=== PATIENT | female | born 1975 | race Caucasian/White ===

== ENCOUNTER 2019-12-10 14:32 | Outpatient (CLI) | payer OTHER, SELFPAY ==
[2019-12-15 19:12] LABS: Vitamin D 25 Hydroxy 40 ng/mL (30-100)
== END 2019-12-10 14:33 | disposition home or self-care (01) ==
LOC: CHSLAB 14:39
PROVIDERS: PCP Internal Medicine
DX: E55.9 Vitamin D deficiency, unspecified (principal)
CPT/HCPCS: 36415; 82306

== ENCOUNTER 2020-05-17 11:45 | Outpatient (CLI) | payer OTHER, SELFPAY ==
[2020-05-17 12:00] LABS: Basophils Absolute Auto 0.07 K/mm3 (0.00-0.10); Basophils Percent Auto 0.5 % (0.0-1.0); Eosinophils Absolute Auto 0.32 K/mm3 (0.02-0.50); Eosinophils Percent Auto 2.4 % (1.0-6.0); Immature Granulocyte Absolute 0.04 K/mm3 (0.00-0.00); Immature Granulocyte Percent A 0.3 % (0.0-0.0); Lymphocytes Absolute Auto 3.77 K/mm3 (1.10-4.50); Lymphocytes Percent Auto 28.7 % (18.0-42.0); Mean Corpuscular HGB Conc 34.1 g/dL (32.0-36.0); Mean Corpuscular Hemoglobin 30.6 pg (27.0-31.0); Mean Corpuscular Volume 89.5 fL (78.0-102.0); Mean Platelet Volume 9.3 fl (9.2-11.8); Monocytes Percent Auto 8.4 % (2.0-11.0); Neutrophils Absolute Auto 7.8 K/mm3 (1.7-7.2); Neutrophils Percent Auto 59.7 % (50.0-70.0); Platelet Count Result 324 K/mm3 (150-420); Red Blood Count 4.58 M/mm3 (4.20-5.40); Red Cell Distribution Width 11.9 % (11.6-14.4); White Blood Count 13.1 K/mm3 (4.8-10.8)
[2020-05-17 12:16] LABS: Appearance Urine Cloudy (Clear); Bilirubin Urine Negative (Negative); Color Urine Yellow (Yellow); Glucose Urine UA Negative (Negative); Ketones Urine Negative (Negative); Leukocyte Esterase Ur 1+ (Negative); Nitrate Urine Negative (Negative); Protein Urine Negative (Negative); Urobilinogen Urine 0.2 mg/dL (0.2-1.0)
[2020-05-17 12:26] LABS: Add Urine Microscopic? YES; Bacteria Urine 2+ /hpf; Blood Urine Trace-Intact (Negative); RBC Urine 0-2 /hpf (0-2); Squamous Epithelial Cell Urine Many /hpf (Few)
[2020-05-17 13:03] LABS: Alanine Aminotransferase 24 U/L (14-59); Albumin Level 3.7 g/dL (3.4-5.0); Alkaline Phosphatase 102 U/L (46-116); Anion Gap 12 mmol/L (8-16); Aspartate Amino Transferase 13 U/L (15-37); Bilirubin,Total 0.4 mg/dL (0.00-1.00); Blood Urea Nitrogen 15 mg/dL (7-18); Calcium 9.2 mg/dL (8.5-10.1); Carbon Dioxide 26 mmol/L (21-32); Chloride 101 mmol/L (98-108); Cholesterol 261 mg/dL (0-200); Estimated Glomerular Filt Rate > 60; Glucose 73 mg/dL (70-99); HDL Direct 47 mg/dL (40-60); LDL Cholesterol Calculated 186 mg/dL (<130); Osmolality Calculated 287 mOsm/kg (285-295); Potassium 4.4 mmol/L (3.5-5.1); Sodium 139 mmol/L (136-145); Total Protein 7.8 g/dL (6.4-8.2); Triglycerides 139 mg/dL (0-150)
== END 2020-05-17 11:46 | disposition home or self-care (01) ==
PROVIDERS: PCP Internal Medicine; Visit Provider Internal Medicine
DX: Z00.00 Encounter for general adult medical examination without abnormal findings (principal); I10 Essential (primary) hypertension; N39.0 Urinary tract infection, site not specified
CPT/HCPCS: 36415; 80053; 80061; 81001; 85025; 87086

== ENCOUNTER 2020-06-12 08:14 | Outpatient (CLI) | payer OTHER, SELFPAY ==
--- NOTE | ~2020-06-12 | MM_ITS ---
EXAMINATION: MM screening mio BI w alexa HISTORY: Screening mammogram TECHNIQUE: Craniocaudal and mediolateral oblique 3-D tomosynthesis images were obtained and synthetic 2-D images were generated. CAD analysis was submitted and interpreted. COMPARISON: 12/06/2018, 07/15/2017, 05/06/2016 bilateral digital screening mammogram examinations BREAST PARENCHYMAL COMPOSITION: There are scattered areas of fibroglandular density. FINDINGS: There is no evidence of suspicious mass, calcification, or architectural distortion to sugg est malignancy in either breast. There has been no suspicious interval change. IMPRESSION: 1. No mammographic evidence of malignancy. 2. Recommend routine screening mammography in one year. BI-RADS Category 1: Negative Reviewed, dictated and finalized at location A. 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
== END 2020-06-12 08:15 | disposition home or self-care (01) ==
LOC: CHSIMG 08:14
PROVIDERS: PCP Internal Medicine; Visit Provider Obstetrics & Gynecology
DX: Z12.31 Encounter for screening mammogram for malignant neoplasm of breast (principal)
CPT/HCPCS: 77063; 77067

== ENCOUNTER 2020-08-16 16:46 | Outpatient (CLI) | payer OTHER, SELFPAY ==
[2020-08-22 13:01] LABS: Vitamin D 25 Hydroxy 41 ng/mL (30-100)
== END 2020-08-16 16:47 | disposition home or self-care (01) ==
LOC: CHSLAB 16:48
PROVIDERS: PCP Internal Medicine; Visit Provider Internal Medicine Endocrinology, Diabetes & Metabolism
DX: E55.9 Vitamin D deficiency, unspecified (principal)
CPT/HCPCS: 36415; 82306

== ENCOUNTER 2020-10-24 15:40 | Outpatient (CLI) | payer OTHER, SELFPAY ==
[2020-10-24 17:06] LABS: Anion Gap 8 mmol/L (8-16); Blood Urea Nitrogen 14 mg/dL (7-18); Carbon Dioxide 27 mmol/L (21-32); Chloride 100 mmol/L (98-108); Estimated Glomerular Filt Rate 56; Glucose 82 mg/dL (70-99); Osmolality Calculated 279 mOsm/kg (285-295); Potassium 4.2 mmol/L (3.5-5.1); Sodium 135 mmol/L (136-145)
[2020-10-24 17:07] LABS: Thyroid Stimulating Hormone Reflex 1.47 u/IU/mL (0.36-3.74)
[2020-10-28 11:30] LABS: Vitamin D 25 Hydroxy 32 ng/mL (30-100)
== END 2020-10-24 15:41 | disposition home or self-care (01) ==
PROVIDERS: PCP Internal Medicine; Visit Provider Internal Medicine Endocrinology, Diabetes & Metabolism
DX: E55.9 Vitamin D deficiency, unspecified (principal); E06.3 Autoimmune thyroiditis
CPT/HCPCS: 36415; 80048; 82306; 84443

== ENCOUNTER 2020-12-25 09:19 | Outpatient (CLI) | payer OTHER, SELFPAY ==
--- NOTE | ~2020-12-25 | US_ITS ---
EXAMINATION: US thyroid DATE: 12/25/2020 11:43 INDICATION: Dysphagia TECHNIQUE: Multiple ultrasound images of the thyroid were obtained. COMPARISON: 12/10/2018 FINDINGS: The right thyroid lobe measures 3.6 x 0.9 x 1.2 cm. The left thyroid lobe measures 3.7 x 1.3 x 1.3 c m. The thyroid isthmus measures 3 mm in thickness. No discrete nodules identified. Again seen is diff use heterogeneous decreased echogenicity with coarsened echotexture and increased vascular flow throu ghout the thyroid. IMPRESSION: 1. Heterogeneous hypervascular thyroid consistent with chronic lymphocytic (Spencer) thyroiditis. Reviewed, dictated and finalized at location A. IMPRESSION: 1. Heterogeneous hypervascular thyroid consistent with chronic lymphocytic (Has himoto) thyroiditis.
== END 2020-12-25 09:20 | disposition home or self-care (01) ==
LOC: CHSIMG 09:21
PROVIDERS: PCP Internal Medicine; Visit Provider Internal Medicine Endocrinology, Diabetes & Metabolism
DX: R13.10 Dysphagia, unspecified (principal)
CPT/HCPCS: 76536

== ENCOUNTER 2021-03-07 12:53 | Outpatient (CLI) | payer OTHER, SELFPAY ==
[2021-03-07 16:00] LABS: SARS-CoV-2 RNA PCR Negative (Negative)
== END 2021-03-07 12:54 | disposition home or self-care (01) ==
LOC: CHSLAB 12:57
PROVIDERS: PCP Family Medicine; Visit Provider Nurse Practitioner
DX: R50.9 Fever, unspecified (principal); Z20.822 Contact with and (suspected) exposure to COVID-19
CPT/HCPCS: C9803; U0003; U0005

== ENCOUNTER 2021-07-17 09:09 | Outpatient (CLI) | payer OTHER, SELFPAY ==
[2021-07-17 09:54] LABS: Hemoglobin A1C 6.4 % (<5.7)
[2021-07-17 10:20] LABS: Alanine Aminotransferase 25 U/L (14-59); Albumin Level 3.4 g/dL (3.4-5.0); Alkaline Phosphatase 97 U/L (46-116); Anion Gap 12 mmol/L (8-16); Aspartate Amino Transferase 19 U/L (15-37); Bilirubin,Total 0.4 mg/dL (0.00-1.00); Blood Urea Nitrogen 13 mg/dL (7-18); Carbon Dioxide 27 mmol/L (21-32); Chloride 100 mmol/L (98-108); Cholesterol 238 mg/dL (0-200); Estimated Glomerular Filt Rate > 60; Glucose 109 mg/dL (70-99); HDL Direct 42 mg/dL (40-60); Osmolality Calculated 289 mOsm/kg (285-295); Potassium 3.6 mmol/L (3.5-5.1); Sodium 139 mmol/L (136-145); Total Protein 7.5 g/dL (6.4-8.2)
[2021-07-17 10:45] LABS: LDL Cholesterol Calculated 169 mg/dL (<130); Triglycerides 135 mg/dL (0-150)
[2021-07-19 13:36] LABS: Vitamin D 25 Hydroxy 47 ng/mL (30-100)
== END 2021-07-17 09:10 | disposition home or self-care (01) ==
LOC: CHSLAB 09:11
PROVIDERS: PCP Family Medicine; Visit Provider Internal Medicine Endocrinology, Diabetes & Metabolism
DX: Z13.1 Encounter for screening for diabetes mellitus (principal); I10 Essential (primary) hypertension; E78.2 Mixed hyperlipidemia; E55.9 Vitamin D deficiency, unspecified; E03.9 Hypothyroidism, unspecified
CPT/HCPCS: 36415; 80053; 80061; 82306; 83036; 84443

== ENCOUNTER 2021-09-26 07:14 | Outpatient (CLI) | payer OTHER, SELFPAY ==
--- NOTE | ~2021-09-26 | MM_ITS ---
EXAMINATION: MM screening mio BI w alexa HISTORY: Screening TECHNIQUE: Craniocaudal and mediolateral oblique 3-D tomosynthesis images were obtained and synthetic 2-D images were generated. CAD analysis was submitted and interpreted. COMPARISON: Comparison to multiple prior studies sequentially, with oldest reviewed study dated 02/13. BREAST PARENCHYMAL COMPOSITION: There are scattered areas of fibroglandular density. FINDINGS: There is no evidence of suspicious mass, calcification, or architectural distortion to sugg est malignancy in either breast. There has been no suspicious interval change. IMPRESSION: 1. No mammographic evidence of malignancy. 2. Recommend routine screening mammography in one year. BI-RADS Category 1: Negative Reviewed, dictated and finalized at location A. 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
== END 2021-09-26 07:15 | disposition home or self-care (01) ==
LOC: CHSIMG 07:15
PROVIDERS: PCP Family Medicine; Visit Provider Obstetrics & Gynecology
DX: Z12.31 Encounter for screening mammogram for malignant neoplasm of breast (principal)
CPT/HCPCS: 77063; 77067

== ENCOUNTER 2021-11-13 09:08 | Outpatient (CLI) | payer OTHER, SELFPAY ==
[2021-11-13 10:00] LABS: SARS-CoV-2 Ag Negative (Negative)
== END 2021-11-13 09:09 | disposition home or self-care (01) ==
LOC: CHSLAB 09:09
PROVIDERS: PCP Family Medicine; Visit Provider Family Medicine
DX: J06.9 Acute upper respiratory infection, unspecified (principal); Z20.822 Contact with and (suspected) exposure to COVID-19
CPT/HCPCS: 87426; C9803

== ENCOUNTER 2021-12-05 10:25 | Outpatient (CLI) | payer OTHER, SELFPAY ==
[2021-12-06 18:21] LABS: Cholesterol 231 mg/dL (0-200); HDL Direct 42 mg/dL (40-60); LDL Cholesterol Calculated 155 mg/dL (<130); Triglycerides 168 mg/dL (0-150)
== END 2021-12-05 10:26 | disposition home or self-care (01) ==
LOC: CHSLAB 10:29
PROVIDERS: PCP Family Medicine; Visit Provider Family Medicine
DX: R73.03 Prediabetes (principal); E78.2 Mixed hyperlipidemia
CPT/HCPCS: 36415; 80061; 83036

== ENCOUNTER 2022-07-04 10:02 | Outpatient (CLI) | payer OTHER, SELFPAY ==
[2022-07-04 10:48] LABS: Hemoglobin A1C 5.7 % (<5.7)
[2022-07-04 11:20] LABS: Alanine Aminotransferase 25 U/L (14-59); Albumin Level 3.6 g/dL (3.4-5.0); Alkaline Phosphatase 100 U/L (46-116); Anion Gap 10 mmol/L (8-16); Aspartate Amino Transferase 17 U/L (15-37); Bilirubin,Total 0.4 mg/dL (0.00-1.00); Blood Urea Nitrogen 16 mg/dL (7-18); Calcium 9.2 mg/dL (8.5-10.1); Carbon Dioxide 30 mmol/L (21-32); Chloride 99 mmol/L (98-108); Cholesterol 242 mg/dL (0-200); Estimated Glomerular Filt Rate > 60; Glucose 93 mg/dL (70-99); HDL Direct 43 mg/dL (40-60); LDL Cholesterol Calculated 169 mg/dL (<130); Osmolality Calculated 289 mOsm/kg (285-295); Potassium 3.8 mmol/L (3.5-5.1); Sodium 139 mmol/L (136-145); Total Protein 7.8 g/dL (6.4-8.2); Triglycerides 151 mg/dL (0-150)
[2022-07-08 21:29] LABS: Vitamin D 25 Hydroxy 57 ng/mL (30-100)
== END 2022-07-04 10:03 | disposition home or self-care (01) ==
LOC: CHSLAB 10:04
PROVIDERS: PCP Family Medicine; Visit Provider Internal Medicine Endocrinology, Diabetes & Metabolism
DX: R73.03 Prediabetes (principal); E78.2 Mixed hyperlipidemia; E03.9 Hypothyroidism, unspecified; E55.9 Vitamin D deficiency, unspecified
CPT/HCPCS: 36415; 80053; 80061; 82306; 83036; 84443

== ENCOUNTER 2022-08-02 11:13 | Emergency (ER) | payer OTHER, SELFPAY ==
--- NOTE | 2022-08-02 11:17 | ED.URI ---
HPI - URI/Sore Throat General Chief Complaint: Upper Respiratory Infection Stated Complaint: COLD/CHEST CONGESTION Time Seen by Provider: 08/02/22 11:17 Source: patient and RN notes reviewed History of Present Illness HPI Narrative: Patient is a 46-year-old female who presents to Urgent Care with her spouse with complaints of a head cold, chest congestion and cough. Patient states it started 4 days ago and she has been taking Coricidin once per day. Patient denies any other ivsx-cfg-spsuvmy medications. Denies any other upper respiratory complaints. Denies any recent exposure to illness. States her main issue is the coughing at night and in the morning when she wakes up. Denies any fever, nausea, vomiting, sore throat. No other acute complaints. No acute distress noted. Patient aware of the plan of care. Some parts of this dictation were generated by voice recognition software and may contain typographical and/or grammatical inaccuracies. Related Data Home Medications Medication Instructions Recorded Confirmed atorvastatin 10 mg tablet mg 08/02/22 chlorthalidone 25 mg tablet mg 08/02/22 ergocalciferol (vitamin D2) 1,250 08/02/22 mcg (50,000 unit) capsule metformin 500 mg tablet mg 08/02/22 metoprolol succinate 50 mg mg PO 08/02/22 tablet,extended release 24 hr Allergies Allergy/AdvReac Type Severity Reaction Status Date / Time Sulfa (Sulfonamide Allergy Rash Verified 08/02/22 11:28 Antibiotics) Review of Systems Review of Systems: CONSTITUTIONAL: Denies fever, chills, or sweats. EYES: Denies visual changes, redness, or discharge. ENT: Reports rhinorrhea, congestion postnasal CARDIOVASCULAR: Denies chest pain, palpitations, or edema. RESPIRATORY: Reports a productive cough without wheezing GASTROINTESTINAL: Denies abdominal pain, nausea, vomiting, or diarrhea. GENITOURINARY: Denies dysuria or hematuria. SKIN: Denies rash or itching. MUSCULOSKELETAL: Denies back pain, joint pain, or myalgia. NEUROLOGIC: Denies headache, numbness, or weakness. All other systems reviewed are negative, except as documented in HPI. PMFSH Comments At the time of my signature, I reviewed and agree with the nursing past medical, surgical, social, and family history. There is no relevant family history pertinent to the patient complaint. Exam Narrative: GENERAL: This is a well-nourished, well-developed patient, in no apparent distress. HEAD: normocephalic, atraumatic. EYES: PERRL. Sclera clear/white. Vision is grossly intact. EARS: External ears normal, auditory canals clear and without drainage, TMs normal without perforation. Hearing grossly intact. NOSE: External nose normal with no obvious nasal discharge, nares without redness, clear rhinorrhea. THROAT: Mucous membranes moist, moderate postnasal drainage NECK: Neck supple, non-tender without lymphadenopathy CARDIOVASCULAR: Regular rate and rhythm RESPIRATORY: Clear to auscultation. Breath sounds equal bilaterally. No wheezes, rales, or rhonchi. SKIN: warm, intact with no suspicious lesions or rash, good texture and turgor. NEURO: awake, alert, and oriented to person, place and time. There were no obvious focal neurologic abnormalities. EXTREMITIES: No clubbing, cyanosis, or edema. Course Course Level of Care: Express Care Visit Vital Signs Vital signs: Vital Signs Temperature 97.7 F 08/02/22 11:29 Pulse Rate 84 08/02/22 11:29 Respiratory Rate 16 08/02/22 11:29 Blood Pressure 158/95 H 08/02/22 11:29 Pulse Oximetry 98 08/02/22 11:29 Temperature 97.7 F 08/02/22 11:29 Pulse Rate 84 08/02/22 11:29 Respiratory Rate 16 08/02/22 11:29 Blood Pressure 158/95 H 08/02/22 11:29 Pulse Oximetry 98 08/02/22 11:29 Reviewed- Patient is informed that they may have pre-hypertension or hypertension based on a blood pressure reading in the department. I recommend the patient call the primary care provider listed on their discharge instru
[2022-08-02 11:29] VITALS: BP 158/95; PULSE 84; RESP 16; TEMP 36.5; O2SAT 98
== END 2022-08-02 11:51 | disposition home or self-care (01) ==
PROVIDERS: Emergency Provider Nurse Practitioner Family; PCP Family Medicine
DX: J06.9 Acute upper respiratory infection, unspecified (principal); E78.00 Pure hypercholesterolemia, unspecified; I10 Essential (primary) hypertension; E03.9 Hypothyroidism, unspecified; R73.03 Prediabetes
CPT/HCPCS: 99213; G0463

== ENCOUNTER 2023-01-05 07:57 | Outpatient (CLI) | payer OTHER, SELFPAY ==
--- NOTE | ~2023-01-05 | MM_ITS ---
EXAMINATION: MM screening mio BI w alexa HISTORY: Screening mammogram TECHNIQUE: Craniocaudal and mediolateral oblique 3-D tomosynthesis images were obtained and synthetic 2-D images were generated. CAD analysis was submitted and interpreted. COMPARISON: 09/26/2021, 06/08/2020, 12/06/2018 bilateral screening mammogram examinations BREAST PARENCHYMAL COMPOSITION: There are scattered areas of fibroglandular density. FINDINGS: There is no evidence of suspicious mass, calcification, or architectural distortion to sugg est malignancy in either breast. There has been no suspicious interval change. IMPRESSION: 1. No mammographic evidence of malignancy. 2. Recommend routine screening mammography in one year. BI-RADS Category 1: Negative Reviewed, dictated and finalized at location A.
== END 2023-01-05 07:58 | disposition home or self-care (01) ==
LOC: CHSIMG 07:59
PROVIDERS: PCP Family Medicine; Visit Provider Obstetrics & Gynecology
DX: Z12.31 Encounter for screening mammogram for malignant neoplasm of breast (principal)
CPT/HCPCS: 77063; 77067

== ENCOUNTER 2023-04-04 10:31 | Outpatient (CLI) | payer OTHER, SELFPAY ==
[2023-04-04 11:41] LABS: Alanine Aminotransferase 24 U/L (14-59); Albumin Level 3.5 g/dL (3.4-5.0); Alkaline Phosphatase 111 U/L (46-116); Anion Gap 9 mmol/L (8-16); Aspartate Amino Transferase 19 U/L (15-37); Bilirubin,Total 0.5 mg/dL (0.00-1.00); Blood Urea Nitrogen 14 mg/dL (7-18); Calcium 9.2 mg/dL (8.5-10.1); Carbon Dioxide 30 mmol/L (21-32); Chloride 100 mmol/L (98-108); Estimated Glomerular Filt Rate > 60; Glucose 106 mg/dL (70-99); Osmolality Calculated 288 mOsm/kg (285-295); Potassium 3.8 mmol/L (3.5-5.1); Sodium 139 mmol/L (136-145); Total Protein 7.5 g/dL (6.4-8.2)
[2023-04-04 11:54] LABS: Thyroid Stimulating Hormone Reflex 3.03 u/IU/mL (0.36-3.74)
[2023-04-09 12:33] LABS: Vitamin D 25 Hydroxy 56 ng/mL (30-100)
== END 2023-04-04 10:32 | disposition home or self-care (01) ==
LOC: CHSLAB 10:34
PROVIDERS: PCP Nurse Practitioner; Visit Provider Internal Medicine Endocrinology, Diabetes & Metabolism
DX: R73.01 Impaired fasting glucose (principal); E55.9 Vitamin D deficiency, unspecified
CPT/HCPCS: 36415; 80053; 82306; 84443

== ENCOUNTER 2023-05-29 09:04 | Outpatient (CLI) | payer OTHER, SELFPAY ==
[2023-05-29 09:59] LABS: Hemoglobin A1C 7.1 % (<5.7)
[2023-05-29 10:14] LABS: Cholesterol 198 mg/dL (0-200); HDL Direct 43 mg/dL (40-60); LDL Cholesterol Calculated 125 mg/dL (<130); Triglycerides 152 mg/dL (0-150)
== END 2023-05-29 09:05 | disposition home or self-care (01) ==
PROVIDERS: PCP Nurse Practitioner; Visit Provider Internal Medicine Endocrinology, Diabetes & Metabolism
DX: R73.01 Impaired fasting glucose (principal)
CPT/HCPCS: 36415; 80061; 83036

== ENCOUNTER 2023-10-02 00:36 | Day surgery (SDC) | payer OTHER, SELFPAY ==
[2023-09-23 10:48] VITALS: BMI 34.0
--- NOTE | 2023-09-30 08:44 | SUR.PREOP ---
Patient called regarding upcoming procedure. Reviewed preop instructions, appointment times, and procedure prep.
[2023-10-02 06:20] VITALS: BP 155/90; PULSE 95; RESP 18; TEMP 36.2; O2SAT 100; BMI 34.7
[2023-10-02] MEDS: LACTATED RINGERS 1,000 ML 150 ML IV CONT (06:46)
[2023-10-02 06:48] LABS: Glucose Point of Care 127 mg/dl (65-105)
--- NOTE | 2023-10-02 07:27 | WPDANESEPPF ---
Anes - Initial Pre Proc Eval Procedure: Operation Date: 10/02/23 07:30 Proposed Procedures p Screening Colonoscopy - Brant Huang MD Date/Time: 10/02/23 07:27 Surgeon: Brant Huang MD Pre Op Diagnosis: neoplasm screening Patient Data Age: 48 Gender: F Height: 1.6 m Weight: 88.9 kg Last Vital Signs Temp 97.2 F L 10/02/23 06:20 Pulse 95 10/02/23 06:20 Resp 18 10/02/23 06:20 BP 155/90 H 10/02/23 06:20 Pulse Ox 100 10/02/23 06:20 O2 Del Method Room Air 10/02/23 06:20 Allergies Allergy/AdvReac Type Severity Reaction Status Date / Time Sulfa (Sulfonamide Allergy Rash Verified 10/02/23 06:31 Antibiotics) Home Medications Medication Instructions Recorded Confirmed Type chlorthalidone 25 mg tablet 25 mg PO DAILY 08/02/22 10/02/23 History ergocalciferol (vitamin D2) 1,250 1,250 mcg PO WEEKLY 08/02/22 10/02/23 History mcg (50,000 unit) capsule levothyroxine 100 mcg tablet 100 mcg PO DAILY 08/02/22 10/02/23 History (Synthroid) metformin 500 mg tablet 500 mg PO BID 08/02/22 10/02/23 History metoprolol succinate 50 mg 50 mg PO HS 08/02/22 10/02/23 History tablet,extended release 24 hr norethindrone 1 mg-ethinyl 1 tablet PO DAILY 08/02/22 10/02/23 History estradiol 10 mcg (24)-iron 10 mcg(2) tablet (Lo Loestrin Fe) atorvastatin 10 mg tablet 10 mg PO DAILY #90 tabs 07/08/23 10/02/23 Rx Laboratory Tests 10/02/23 06:39 POC Capillary Glucose 127 H mg/dl (65-105) Patient hx anesthesia problems: none Family hx anesthesia problems: none Results Review: All pre-operative results and documents have been reviewed as part of the pre-operative evaluation. [facility] Past Medical History Medical History Diabetes HLD (hyperlipidemia) HTN (hypertension) Hypothyroidism Surgical History Surgical History History of delivery x2 Family History Family History Father Diabetes mellitus Hypertension Heart disease Mother Hypertension Sibling Asthma Hypertension Social History Social History (Updated 09/28/23 @ 14:24 by Fartun Siu) Social History: Spouse Smoking status: Never smoker Second hand tobacco smoke exposure: No Alcohol intake: current Alcohol use details: rare Substance use: never Substance use type: does not use Do You Feel Safe in your Home?: Yes Lack of Transportation: No Lack of Food: Never True Current Housing: I Have Housing Concerned About Future Housing: No Difficulty Paying Gas/Electric Bills: No Difficulty Paying for Meds: No Currently Unemployed: No Education: Don't Know Difficulty w/ Childcare or Family Care: No Living arrangements: alone Occupation/Education: occupation Gender identity (if verbalized by the patient): Female Sexual Orientation (if Verbalized by the Patient): Straight or Heterosexual Spiritual care concerns: No Anes - Eval Final PreProcedure Day of Procedure 10/02/23 07:27 Patient weight: obese Heart: regular rate and rhythm Lungs: clear to auscultation Airway: Mallampati scale class II Neurological: alert and oriented Last oral intake: >/= 8 hours ASA classification: III Emergent: no Anesthetic plan: proceed Anesthesia type and monitoring: general GIVS and standard monitoring Results Review: All pre-operative results and documents have been reviewed as part of the pre-operative evaluation. Informed Consent: The patient's anesthetic plan and its attendant risks and benefits were discussed with the patient/family/POA. Questions were solicited and answers provided to the satisfaction of the patient/family/POA.
--- NOTE | 2023-10-02 07:27 | PM.HPGS ---
History of Present Illness History of Present Illness Consent: Risks, benefits, and alternatives have been discussed and questions answered. Patient agrees to proceed with procedure. Chief complaint: neoplasm screening Narrative: Flora Perera is a 48 year old female here for first screening colonoscopy Review of Systems Review of Systems: All systems reviewed & are unremarkable except as noted in HPI and below PMFSH Past Medical History Medical History (Updated 10/02/23 @ 07:28 by Brant Huang MD) Colon cancer screening Diabetes HLD (hyperlipidemia) HTN (hypertension) Hypothyroidism Surgical History Surgical History History of delivery x2 Family History Family History Father Diabetes mellitus Hypertension Heart disease Mother Hypertension Sibling Asthma Hypertension Social History Social History (Updated 09/28/23 @ 14:24 by Fartun Siu) Social History: Spouse Smoking status: Never smoker Second hand tobacco smoke exposure: No Alcohol intake: current Alcohol use details: rare Substance use: never Substance use type: does not use Do You Feel Safe in your Home?: Yes Lack of Transportation: No Lack of Food: Never True Current Housing: I Have Housing Concerned About Future Housing: No Difficulty Paying Gas/Electric Bills: No Difficulty Paying for Meds: No Currently Unemployed: No Education: Don't Know Difficulty w/ Childcare or Family Care: No Living arrangements: alone Occupation/Education: occupation Gender identity (if verbalized by the patient): Female Sexual Orientation (if Verbalized by the Patient): Straight or Heterosexual Spiritual care concerns: No Meds Home Medications and Allergies Home Medications Medication Instructions Recorded Confirmed Type chlorthalidone 25 mg tablet 25 mg PO DAILY 08/02/22 10/02/23 History ergocalciferol (vitamin D2) 1,250 1,250 mcg PO WEEKLY 08/02/22 10/02/23 History mcg (50,000 unit) capsule levothyroxine 100 mcg tablet 100 mcg PO DAILY 08/02/22 10/02/23 History (Synthroid) metformin 500 mg tablet 500 mg PO BID 08/02/22 10/02/23 History metoprolol succinate 50 mg 50 mg PO HS 08/02/22 10/02/23 History tablet,extended release 24 hr norethindrone 1 mg-ethinyl 1 tablet PO DAILY 08/02/22 10/02/23 History estradiol 10 mcg (24)-iron 10 mcg(2) tablet (Lo Loestrin Fe) atorvastatin 10 mg tablet 10 mg PO DAILY #90 tabs 07/08/23 10/02/23 Rx Allergies Allergy/AdvReac Type Severity Reaction Status Date / Time Sulfa (Sulfonamide Allergy Rash Verified 10/02/23 06:31 Antibiotics) Vital Signs Vital Signs - 24 hr 10/02/23 06:20 Temperature 97.2 F L Pulse Rate 95 Respiratory Rate 18 Blood Pressure 155/90 H Pulse Oximetry 100 Oxygen Delivery Room Air Exam Const: General: comfortable and no acute distress HENMT: Face/Nose/Sinus: Normal nares present Eyes: General: appearance normal, both eyes and all related structures Neck: Neck: no JVD Resp: Auscultation: clear to auscultation bilaterally Cardio: Rate: regular rate Rhythm: regular rhythm GI: Inspection: non-distended GI Palp: Yes Soft to palpation Skin: General skin exam: normal color Neuro: General: gait normal Speech: normal speech Extrem: General: normal to inspection Psych: Mental Status: mental status grossly normal Assessment and Plan Assessment and plan (1) Colon cancer screening: Code(s): Z12.11 - Encounter for screening for malignant neoplasm of colon Status: Acute Assessment and Plan: colonoscopy
[2023-10-02 08:12] VITALS: BP 99/65; PULSE 72; RESP 13; O2SAT 97
[2023-10-02 08:22] VITALS: BP 121/72; PULSE 76; RESP 23; O2SAT 100
[2023-10-02 08:32] VITALS: BP 143/75; PULSE 72; RESP 21; O2SAT 100
== END 2023-10-02 08:38 | disposition home or self-care (01) ==
PROVIDERS: PCP Family Medicine; Visit Provider Internal Medicine Gastroenterology
PROC: 0DJD8ZZ Inspection of Lower Intestinal Tract, Via Natural or Artificial Opening Endoscopic (ICD-10-PCS; CPT 45378; principal; 2023-10-02 07:30)
DX: Z12.11 Encounter for screening for malignant neoplasm of colon (principal); K63.5 Polyp of colon; K64.8 Other hemorrhoids; E11.9 Type 2 diabetes mellitus without complications; E78.5 Hyperlipidemia, unspecified; I10 Essential (primary) hypertension; E03.9 Hypothyroidism, unspecified; Z79.84 Long term (current) use of oral hypoglycemic drugs; E66.9 Obesity, unspecified; Z68.34 Body mass index [BMI] 34.0-34.9, adult
CPT/HCPCS: 45380; 82948; 88305; J2704; J7120

== ENCOUNTER 2023-10-08 08:14 | Outpatient (CLI) | payer OTHER, SELFPAY ==
[2023-10-08 08:43] LABS: Creatinine Urine 196.33 mg/dL (40-278); MALB Creatinine Ratio 6.6 mg/g (0-30); Microalbumin Urine Random < 13.0 mg/L
[2023-10-08 09:40] LABS: Alanine Aminotransferase 25 U/L (14-59); Albumin Level 3.6 g/dL (3.4-5.0); Alkaline Phosphatase 98 U/L (46-116); Anion Gap 10 mmol/L (8-16); Aspartate Amino Transferase 13 U/L (15-37); Bilirubin,Total 0.5 mg/dL (0.00-1.00); Blood Urea Nitrogen 18 mg/dL (7-18); Calcium 9.3 mg/dL (8.5-10.1); Carbon Dioxide 31 mmol/L (21-32); Chloride 99 mmol/L (98-108); Cholesterol 185 mg/dL (0-200); Estimated Glomerular Filt Rate > 60; Glucose 98 mg/dL (70-99); HDL Direct 45 mg/dL (40-60); LDL Cholesterol Calculated 113 mg/dL (<130); Osmolality Calculated 291 mOsm/kg (285-295); Potassium 3.7 mmol/L (3.5-5.1); Sodium 140 mmol/L (136-145); Total Protein 7.5 g/dL (6.4-8.2); Triglycerides 137 mg/dL (0-150); Vitamin B12 482 pg/mL (193-986)
[2023-10-12 14:02] LABS: Hemoglobin A1C 5.8 % (<5.7)
== END 2023-10-08 08:15 | disposition home or self-care (01) ==
LOC: CHSLAB 08:16
PROVIDERS: PCP Family Medicine; Visit Provider Internal Medicine Endocrinology, Diabetes & Metabolism
DX: E11.65 Type 2 diabetes mellitus with hyperglycemia (principal)
CPT/HCPCS: 36415; 80053; 80061; 82043; 82607; 83036

== ENCOUNTER 2023-11-25 09:17 | Outpatient (CLI) | payer SELFPAY | END 2023-11-25 09:18 | disposition home or self-care (01) | PROVIDERS: PCP Internal Medicine Endocrinology, Diabetes & Metabolism; Visit Provider Internal Medicine Endocrinology, Diabetes & Metabolism | DX: Z71.89 Other specified counseling (principal); Z71.3 Dietary counseling and surveillance | CPT/HCPCS: 99199 ==

== ENCOUNTER 2023-12-17 09:28 | Outpatient (CLI) | payer OTHER, SELFPAY ==
[2023-12-17 10:17] LABS: Alanine Aminotransferase 15 U/L (6-35); Aspartate Amino Transferase 30 U/L (14-36)
== END 2023-12-17 09:29 | disposition home or self-care (01) ==
LOC: ANHLAB 09:29
PROVIDERS: PCP Internal Medicine Endocrinology, Diabetes & Metabolism; Visit Provider Podiatrist Foot & Ankle Surgery
DX: B35.1 Tinea unguium (principal)
CPT/HCPCS: 36415; 84450; 84460

== ENCOUNTER 2024-03-08 10:32 | Outpatient (CLI) | payer OTHER, SELFPAY ==
[2024-03-08 11:28] LABS: Hemoglobin A1C 5.8 % (<5.7)
[2024-03-08 11:45] LABS: Thyroid Stimulating Hormone Reflex 2.03 u/IU/mL (0.36-3.74)
[2024-03-08 12:06] LABS: Alanine Aminotransferase 20 U/L (14-59); Aspartate Amino Transferase 15 U/L (15-37)
[2024-03-09 22:08] LABS: Vitamin D 25 Hydroxy 120 ng/mL (30-100)
== END 2024-03-08 10:33 | disposition home or self-care (01) ==
LOC: CHSLAB 10:35
PROVIDERS: PCP Family Medicine; Visit Provider Podiatrist Foot & Ankle Surgery
DX: B35.1 Tinea unguium (principal); E11.65 Type 2 diabetes mellitus with hyperglycemia; E55.9 Vitamin D deficiency, unspecified
CPT/HCPCS: 36415; 82306; 83036; 84443; 84450; 84460

== ENCOUNTER 2024-05-04 17:15 | Outpatient (CLI) | payer OTHER, SELFPAY ==
[2024-05-06 05:39] LABS: Vitamin D 25 Hydroxy 68 ng/mL (30-100)
== END 2024-05-04 17:16 | disposition home or self-care (01) ==
PROVIDERS: PCP Family Medicine; Visit Provider Internal Medicine Endocrinology, Diabetes & Metabolism
DX: E55.9 Vitamin D deficiency, unspecified (principal)
CPT/HCPCS: 36415; 82306

== ENCOUNTER 2024-06-07 12:44 | Outpatient (CLI) | payer OTHER, SELFPAY ==
--- NOTE | ~2024-06-07 | MM_ITS ---
EXAMINATION: MM screening [facility] BI w alexa HISTORY: Screening mammogram TECHNIQUE: Craniocaudal and mediolateral oblique 3-D tomosynthesis images were obtained and synthetic 2-D images were generated. CAD analysis was submitted and interpreted. COMPARISON: 01/05/2023, 09/26/2021, 06/12/2020 BREAST PARENCHYMAL COMPOSITION:Not Dense. There are scattered areas of fibroglandular density. FINDINGS: No suspicious mass, calcification, or architectural distortion are identified in either kevin ast to suggest malignancy. There has been no suspicious interval change. IMPRESSION: No mammographic evidence of malignancy. Recommend routine screening mammography in one year. BI-RADS Category 1: Negative Reviewed, dictated and finalized at location . 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
== END 2024-06-07 12:45 | disposition home or self-care (01) ==
PROVIDERS: PCP Family Medicine; Visit Provider Obstetrics & Gynecology
DX: Z12.31 Encounter for screening mammogram for malignant neoplasm of breast (principal)
CPT/HCPCS: 77063; 77067

== ENCOUNTER 2024-09-27 10:16 | Outpatient (CLI) | payer OTHER, SELFPAY ==
[2024-09-27 11:06] LABS: Alanine Aminotransferase 18 U/L (6-35); Aspartate Amino Transferase 45 U/L (14-36)
--- OUTSIDE RECORDS SUMMARY | 2024-09-27 11:35 | XMS_ITS | Clinical Summary ---
Author Organization [facility] Address [address] [place] [id number] Care Team Providers Care Lab Instructor Name Role Phone Ismael Page MD Primary Care Provider [phone] Social History Tobacco Use Types Packs/Day Years Used Date Smoking Tobacco: Never Comments Unknown Sex and Gender Information Value Date Recorded Sex Assigned at Not on file Legal Sex Female 11:02 PM CDT Gender Identity Not on file Sexual Orientation Not on file Last Filed Vital Signs Vital Sign Reading Time Taken Comments Blood Pressure 130/82 11/02/2003 11:10 AM CDT Pulse 72 11/02/2003 11:10 AM CDT Temperature - - Respiratory Rate 16 11/02/2003 11:10 AM CDT Oxygen Saturation - - Inhaled Oxygen Concentration - - Weight 73.9 kg (163 lb) 11/02/2003 11:10 AM CDT Height 160 cm (5' 3 ) 11/02/2003 11:10 AM CDT Body Mass Index 28.87 11/02/2003 11:10 AM CDT Plan of Treatment Health Maintenance Due Date Last Done Comments Cervical Cancer Screening Pa p Smear (Age 30 to 64) Every 3 Years 1974 Colorectal Cancer Screening Colonoscopy (10 Years) 1974 Annual Physical 1977 Hepatitis C 1992 Hepatitis B Vaccines (1 of 3 - 19+ 3-dose series) 1993 Cervical Cancer Screening Pa p with HPV Testing (Age 30 to 64) Every 5 Years 2004 Cervical Cancer Screening wi th HPV 2004 Mammogram Screening 2014 COVID-19 Vaccine ( - 2023-2 5 season) 2024 09/21/2020, 08/24/2020 Influenza Adult (#1) 2024 Zoster Vaccines (1 of 2) 2024 DTaP, Tdap and Td Vaccines ( 2 - Td or Tdap) 10/06/2024 10/06/2014 Meningococcal B Vaccine Aged Out No l onger eligible based on patient's age to complete this topic Meningococcal Vaccine Aged Out No griselda marylin eligible based on patient's age to complete this topic Pneumococcal Vaccine: Pediatrics (0 to 5 Years) and At-Risk Patients (6 to 64 Years) Aged Out No longer eligible b ased on patient's age to complete this topic RSV Immunizations Under 20 Months Aged Out No longer eligible b ased on patient's age to complete this topic Insurance [id number] Care Teams Lab Instructor Relationship Specialty Start Date End Date Ismael Page MD [address] [place] [address] PCP - General FAMILY PRACTICE 04/04/21
--- OUTSIDE RECORDS SUMMARY | 2024-09-27 11:35 | XMS_ITS | Clinical Summary ---
Author Organization [facility] Address [address] [place] [address] Care Team Providers Care Cultural Historian Name Role Phone Willard Huynh MD Primary Care Provider [phone] Allergies Active Allergy Reactions Criticality Noted Date Comments Sulfa (Sulfonamide Antibiotics) Rash Medium 10/19 Medications ergocalciferol (Vitamin D2) 50,000 unit capsule once a week 12/18/2018 Active levothyroxine 100 mcg/mL solution daily 12/12/2018 Active metoprolol XL (TOPROL-XL) 50 mg extended release tablet Take 50 mg by mouth daily Active Lo Loestrin Fe 1 mg-10 mcg (24)/10 mcg (2) tablet daily 08/30/2020 Active Active Problems Problem Noted Date Diagnosed Date Palpitations 11/13/2020 Mixed hyperlipidemia 11/13/2020 Family history of premature CAD 11/13/2020 Essential hypertension 11/13/2020 Swelling of lower extremity 11/13/2020 Surgical History Surgery Date Site/Laterality Comments SECTION 03/20/2002 - 04/18/2002 SECTION 02/17/2005 - 03/19/2005 Medical History Medical History Date Comments Hypertension Hyperlipidemia Obesity Thyroid disease Spencer's thyr oiditis H/O section 03/2002 H/O section 02/2005 Family History Medical History Relation Name Comments Heart attack Father Age 53 Heart failure Father Cause of age 65 No Known Problems Mother No Known Problems Sister Relation Name Status Comments Father (Age 65) Mother Alive Sister Alive Social History Tobacco Use Types Packs/Day Years Used Date Smoking Tobacco: Never Smokeless Tobacco: Never Personal Safety Answer Date Recorded Getting School Help Needed Not on file 10/03 Comments Unknown Sex and Gender Information Value Date Recorded Sex Assigned at Not on file Legal Sex Female 3:17 PM CDT Gender Identity Female 11/12/2020 1:16 PM CDT Sexual Orientation Not on file Obstetrics History Last Filed Vital Signs Vital Sign Reading Time Taken Comments Blood Pressure 134/86 11/13/2020 3:25 PM CDT Pulse 79 11/13/2020 2:51 PM CDT Temperature - - Respiratory Rate - - Oxygen Saturation 98% 11/13/2020 2:51 PM CDT Inhaled Oxygen Concentration - - Weight 91.2 kg (201 lb) 11/13/2020 2:51 PM CDT Height 160 cm (5' 3 ) 11/13/2020 2:51 PM CDT Body Mass Index 35.61 11/13/2020 2:51 PM CDT Plan of Treatment Not on file Insurance [employer] Care Teams Cultural Historian Relationship Specialty Start Date End Date Willard Huynh MD PCP - General Internal Medicine 05/18/20
--- OUTSIDE RECORDS SUMMARY | 2024-09-27 11:35 | XMS_ITS | Data Portability ---
Author Organization [facility], [address] [facility] ([place]) Address [address] [place] [address] Care Team Providers Care Motorcycle Racer Name Role Phone CYNDI LARA Primary Care Provider [phone] Assessment Encounter Date Assessment Date Assessment LastModified by Organization Details LastModified Time 10/14/2023 10/14/2023 REASONS FOR FOLLOW-UP: 1. Type 2 diabetes mellitus. 2. 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 3. Vitamin D deficiency. HPI: Ms. Perera is a delightful female returning to endocrine clinic. She has primary hypothyroidism. She was begun on thyroid replacement therapy in November 2018 based on TSH of 14.6. She takes her thyroid hormone dose each day on an empty stomach. Primary hypothyroidism has improved. TSH was 3.03 in March 2023. She describes having a good energy level overall. Denies tremors or palpitations. The patient has vitamin D deficiency. This has improved. She takes ergocalciferol 50,000 units once weekly. March 2023 25-hydroxyvitamin D level was 56. No specific myalgias or arthralgias. Ms. Perera learned of a diagnosis of type 2 diabetes mellitus based on hemoglobin A1c of 7.1% May 29, 2023. She is unaware of any microvascular complications from her diabetes. She denies peripheral paresthesias. She is assessing glucose values at least once daily at various times before meals and bedtime. These values are mostly in the 90s to 130s. Denies symptomatic hypoglycemia. A1c value improved to 5.8% September 2023. BMI is greater than 35. This has improved. Body weight is 13 pounds less as compared to May 2023. She describes having good activity tolerance. She has a new peñaloza retriever puppy at home named Katie. OBJECTIVE: CONST: No acute distress. Appears well. Vitals as documented. BMI greater than 35. EYES: PERRL. EOMI. No scleral icterus or injection. No exophthalmos or lid lag. ENT: External inspection of the ears and nose are without scars, lesions, or masses. Oropharynx is pink, moist, and without lesions. NECK: No thyromegaly, thyroid bruits, or carotid bruits. No cervical or supraclavicular lymphadenopathy. RESP: Lung flores clear to auscultation bilaterally with unlabored respiratory effort. CV: Normal S1, S2. No murmurs, rubs, or gallops appreciated. Regular rate and rhythm. DP pulses palpable. GI: Abdomen: soft, nontender. Normoactive bowel sounds. No organomegaly. MSK: No lower extremity edema. No clubbing or cyanosis. Unable to assess for organomegaly given body habitus. SKIN: No rashes or lesions. Mild pre-ulcerative callus seen. No foot wounds noted. Acanthosis and skin tags absent. Onychomycosis present. PSYCH: Alert and oriented X 3. Appropriate mood and affect. NEURO: No focal neurologic deficits. Gait without abnormalities. No hand tremors. Monofilament sensation of the feet normal on examination October 14, 2023. Reviewed recent diagnostic tests, lab work, and imaging. These were reviewed with the patient. DIAGNOSTIC DATA: October 24, 2020, TSH was 1.47, glucose 82, 25-hydroxy vitamin D level was 32, creatinine 1.05. August 16, 2020: 25-hydroxyvitamin D level was 41. Thyroid ultrasound December 10, 2018 revealed diffusely hypoechoic and heterogeneous thyroid with increased vascularity. There were no discreet nodules per the dictated radiology report. March 2023: 25-hydroxyvitamin D level was 56. Fasting glucose impaired at 106. AST, ALT, alkaline phosphatase normal. TSH normal at 3.03. May 2023: Hemoglobin A1c 7.1%. Cholesterol 198, triglycerides 152, LDL 125, HDL 43. September 2023: Hemoglobin A1c 5.8%. Creatinine 0.87. AST, ALT, alkaline phosphatase were normal. Cholesterol 185, HDL 45, LDL 113, triglycerides 137. Vitamin B12 482. Urine microalbumin to creatinine ratio was normal. ASSESSMENT: 1. Type 2 diabetes mellitus with no currently documented microvascular complications. 2. History of impaired fasting glucose. 3. Primary hypothyroidism. 4. Vitamin D deficiency. 5. Thyroid ultrasound December 25, 2020 revealing heterogeneous hypervascular thyroid consistent with chronic lymphocytic thyroiditis. No discreet nodules per the dictated report. RECOMMENDATIONS: 1. Glycemic goals were reviewed in detail today with the patient. Changes in diabetes program as outlined in Diabetes Management Flowsheet. Parameters for communicating the patient s glucose values to our office were discussed. Potential microvascular and macrovascular complications of hyperglycemia were reviewed with the patient at the time of the appointment. 2. Potential benefits, risks, and adverse effects of the patient s endocrine medications were reviewed at the time of the appointment. We also reviewed appropriate timing of the patient s endocrine medications with respect to meals and other medications. The patient verbalized/indicat ed understanding of all education presented. 3. Instructed on plan of care. Discussed signs and symptoms to report. Patient/caregiver aware and agreeable with plan. Return to clinic if signs/symptoms do not improve, worsen, or if new symptoms develop. The importance of achieving/maintain ing a normal BMI was discussed. 4. Diagnostic studies as outlined in this note. Further recommendations will be based on these results as well as the patient s clinical course. 5. Return to endocrinology clinic in 6 months. 6. We stressed the importance of weight loss in the management of type 2 diabetes mellitus. 7. She will be referred for medical nutrition therapy. 8. We discussed medications today to help with management of diabetes. We reviewed potential benefits as well as potential adverse effects of medications used to treat diabetes. 9. Extended release metformin will be 500 mg twice daily with meals. 10. We discussed lipid and blood pressure goals today. 11. Prescriptions were sent for the patient to continue glucose monitoring once daily at various times before meals and bedtime. We reviewed glycemic goals in detail today. 12. We, again, reviewed appropriate timing of her thyroid hormone dose in relation to meals and other medications. 13. Ergocalciferol will be 50,000 units once weekly. 14. We discussed the option today of introducing a GLP-1 agonist medication for adding an SGLT-2 inhibitor. Ms. Perera verbalized understanding of our discussion and desires to continue metformin. [email or web address] Not available 10/14/2023 16:22:29 06/13/2024 06/13/2024 REASONS FOR FOLLOW-UP: 1. Type 2 diabetes mellitus. 2. 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 3. Vitamin D deficiency. HPI: Ms. Perera is a delightful female returning to endocrine clinic. She has primary hypothyroidism. She was begun on thyroid replacement therapy in November 2018 based on TSH of 14.6. She takes her thyroid hormone dose each day on an empty stomach. Primary hypothyroidism has improved. TSH was 3.03 in March 2023. She describes having a good energy level overall. Denies tremors or palpitations. TSH was 2.03 in February 2024. The patient has vitamin D deficiency. This resolved. She had a 25-hydroxyvitamin D level of 120 in February 2024. She then changed ergocalciferol from 50,000 units weekly to 50,000 units monthly. Her 25-hydroxyvitamin D level improved to 68 later in 2023. No specific arthralgias or myalgias. Ms. Perera learned of a diagnosis of type 2 diabetes mellitus based on hemoglobin A1c of 7.1% May 29, 2023. She is unaware of any microvascular complications from her diabetes. She denies peripheral paresthesias. She assesses glucose values at least once daily at home at various times before meals and at bedtime. Her average fingerstick glucose is 116. She reports tolerating metformin well from a GI standpoint. BMI is greater than 35. This has improved. Body weight is 6 pounds less as compared to May 2023. She describes having good activity tolerance. She has a peñaloza retriever named Katie. PHYSICAL EXAMINATION: CONST: No acute distress. Appears well. Vitals as documented. BMI greater than 35. Appears younger than stated age. EYES: PERRL. EOMI. No scleral icterus or injection. No exophthalmos or lid lag. ENT: External inspection of the ears and nose are without scars, lesions, or masses. Oropharynx is pink, moist, and without lesions. NECK: No thyromegaly, thyroid bruits, or carotid bruits. No cervical or supraclavicular lymphadenopathy. RESP: Lung flores clear to auscultation bilaterally with unlabored respiratory effort. CV: Normal S1, S2. No murmurs, rubs, or gallops appreciated. Regular rate and rhythm. DP pulses palpable. GI: Abdomen: soft, nontender. Normoactive bowel sounds. No organomegaly. MSK: No lower extremity edema. No clubbing or cyanosis. Unable to assess for organomegaly given body habitus. SKIN: No rashes or lesions. Mild pre-ulcerative callus seen. No foot wounds noted. Acanthosis and skin tags absent. Onychomycosis present. PSYCH: Alert and oriented X 3. Appropriate mood and affect. NEURO: No focal neurologic deficits. Gait without abnormalities. No hand tremors. Monofilament sensation of the feet normal on examination June 13, 2024. Reviewed recent diagnostic tests, lab work, and imaging. These were reviewed with the patient. DIAGNOSTIC DATA: December 10, 2018: A thyroid ultrasound revealed diffusely hypoechoic and heterogeneous thyroid with increased vascularity. There were no discreet nodules per the dictated radiology report. October 24, 2020: TSH was 1.47. Glucose 82. A 25-hydroxyvitamin D level was 32. Creatinine 1.05. August 16, 2020: A 25-hydroxyvitamin D level was 41. March 2023: a 25-hydroxyvitamin D level was 56. Fasting glucose impaired at 106. AST, ALT, alkaline phosphatase normal. TSH normal at 3.03. May 2023: Hemoglobin A1c 7.1%. Cholesterol 198, triglycerides 152, LDL 125, HDL 43. September 2023: Hemoglobin A1c 5.8%. Creatinine 0.87. AST, ALT, alkaline phosphatase were normal. Cholesterol 185, HDL 45, LDL 113, triglycerides 137. Vitamin B12 was 482. Urine microalbumin to creatinine ratio was normal. February 2024: Hemoglobin A1c 5.8%. TSH 2.03. AST and ALT were normal. ASSESSMENT: 1. Type 2 diabetes mellitus with no currently documented microvascular complications. 2. History of impaired fasting glucose. 3. Primary hypothyroidism. 4. Vitamin D deficiency. 5. Thyroid ultrasound December 25, 2020, revealing heterogeneous hypervascular thyroid consistent with chronic lymphocytic thyroiditis. No discreet nodules per the dictated report. RECOMMENDATIONS: 1. Glycemic goals were reviewed in detail today with the patient. Changes in diabetes program as outlined in diabetes management flowsheet. Parameters for communicating the patient s glucose values to our office were discussed. Potential microvascular and macrovascular complications of hyperglycemia were reviewed with the patient at the time of the appointment. 2. Potential benefits, risks, and adverse effects of the patient s endocrine medications were reviewed at the time of the appointment. We also reviewed appropriate timing of the patient s endocrine medications with respect to meals and other medications. The patient verbalized/indicat ed understanding of all education presented. 3. Instructed on plan of care. Discussed signs and symptoms to report. Patient/caregiver aware and agreeable with plan. Return to clinic if signs/symptoms do not improve, worsen, or if new symptoms develop. The importance of achieving/maintain ing a normal BMI was discussed. 4. Diagnostic studies as outlined in this note. Further recommendations will be based on these results as well as the patient s clinical course. 5. Return to endocrinology clinic in 6 months. 6. We stressed the importance of weight loss in the management of type 2 diabetes mellitus. 7. Continue medical nutrition therapy for her diabetes management. 8. We discussed medications today to help with management of diabetes. We reviewed potential benefits as well as potential adverse effects of medications used to treat diabetes. 9. Extended release metformin will be 500 mg twice daily with meals. 10. We discussed lipid and blood pressure goals today. 11. Prescriptions were sent for the patient to continue glucose monitoring once daily at various times before meals and bedtime. We reviewed glycemic goals in detail today. 12. We again reviewed appropriate timing of her thyroid hormone dose in relation to meals and other medications. 13. Change ergocalciferol to 50,000 every 2 weeks. 14. We discussed the option today of introducing a GLP-1 agonist medication for adding an SGLT-2 inhibitor. Ms. Perera verbalized understanding of our discussion and desires to continue metformin. 15. We will obtain a copy of the most recent eye examination. [email or web address] Not available 06/13/2024 16:54:15 Plan of Treatment Reminders Order Date Submit Date Provider Last Modified By Organization Details Last Modified Time Details Appointments Establish ed Patient 15.EST 2024 09:30A M Dr. Bam Figueroa Not available Not available Not available Lab vitamin D, 25-hydrox y, total, serum [address] (Lab), [address] [place] [address], [id number], 06/13/2024 13:12:34 CMP, serum or plasma [address] [facility], [address] [place] [address], [id number], 06/13/2024 13:12:34 hemoglobi n A1c + average glucose, QN, blood 2023 025 [email or web address], [address] [place] [address], [id number], 06/13/2024 13:12:34 microalbu min, urine 2023 025 [email or web address], [address] [place] [address], [id number], 06/13/2024 13:12:34 TSH, serum or plasma 2023 025 [email or web address], [address] [place] [address], [id number], 06/13/2024 13:12:34 vitamin B12, serum 2023 025 [email or web address], [address] [place] [address], [id number], 06/13/2024 13:12:34 lipid panel, serum 2023 025 [email or web address], [address] [place] [address], [id number], 06/13/2024 13:12:34 vitamin D, 25-hydrox y, total, serum 2023 024 [facility] (Lab), [address] [place] [address], [id number], 03/10/2024 09:48:19 HbA1c (hemoglob in A1c), blood 2023 024 [facility] (Lab), [address] [place] [address], [id number], 03/08/2024 17:22:20 TSH, serum, reflex free T4 2023 024 [facility] (Lab), [address] [place] [address], [id number], 03/08/2024 20:23:22 Referral None recorded. Procedures None recorded. Surgeries None recorded. Imaging None recorded. Medication Orders ergocalci ferol (vitamin D2) 1,250 mcg (50,000 unit) capsule 2023 024 [facility] [address], [place], [id number], 06/13/2024 13:14:32 OneTouch Ultra Test strips 2023 024 [email or web address], [facility] [address], [id number], 10/18/2023 15:24:33 Patient TargetsNo targets recorded. Patient InstructionsNo instructions recorded. Reason for Referral None Reported. Results Created Date Observation Date Name Description Value Unit Range Abnormal Flag Note LastModifiedBy Organization Detail LastModifiedTime 06/13/2006/13/2024 hemog lobin A1C, finge rstic k fingerstick A1C endo Not Available [facility] [address] [place] [address], [id number], 06/13/2024 10:41:04 06/13/2006/13/2024 hemog lobin A1C, finge rstic k hemoglobin A1C, finger 6.0 %_A1C 4.3 - 5.6 high Not Available [facility] [address] [place] [address], [id number], 06/13/2024 10:41:04 06/13/2006/13/2024 hemog lobin A1C, finge rstic k fingerstick estimated [address] Not Available [facility] [address] [place] [address], [id number], 06/13/2024 10:41:04 Result Notes None recorded. Problems Name Problem SNOMED Code Status Onset Date Resolution Date Notes Provider Name and Address Organization Details Recorded Time Type 2 diabetes mellitus without complicati on 640888282 [facility] 2023 [facility] 11:53[facility]08 Spencer thyroiditi s 20571490 Active 2023 [facility] 4 12:04:25 Hypothyroi dism 23072185 Active 2023 [facility] 4 12:04:39 Type 2 diabetes mellitus 77988540 Active 2023 with hyperglyce trinity [facility] 4 12:05:36 Vitamin D deficiency 42961555 Active 2023 [facility] 4 12:28:40 Problem Notes None recorded. Procedures Surgical History Date Name Laterality Status Provider Name and Address Organization Details Recorded Time delivery completed Not Available Health Note 10/09/2023 12:57:09 Colonoscopy with biopsy completed Not Available Health Note 10/09/2023 12:57:09 Imaging Results None recorded. Procedure Notes None recorded. Medical Equipment None Reported. Allergies Allergen ID Allergen Name Allergen Category Reaction Reaction Severity Criticality Documentation Date Start Date Code Code System Note Provider Name and Address Organization Details Recorded Time 2527296 Substance with sulfonami de structure and antibacte rial mechanism of action (substanc e) medicatio n Not available Not available Not available 08/19/20232018 83660 8003 SNOMED Not Available Not Available Not Available Medications Name Sig Start Date Stop Date Status Note LastModified by Organization Details LastModified Time metformin 500 mg tablet 02/07 completed Not Available Not Available Not Available doxycycli ne hyclate 100 mg capsule 06/13 completed Not Available Not Available Not Available atorvasta tin 10 mg tablet active Not Available Not Available Not Available metoprolo l succinate ER 50 mg tablet,ex tended release 24 hr active Not Available Not Available Not Available prednison e 20 mg tablet 06/13 completed Not Available Not Available Not Available Synthroid 100 mcg tablet TAKE 1 TAB PO QD ON AN EMPTY STOMACH 2023 active Last refilled 06/03/20 23 Not Available Not Available Not Available chlorthal idone 25 mg tablet active Not Available Not Available No t Available terbinafi ne HCl 250 mg tablet active Not Available Not Available Not Available OneTouch Ultra Test strips Take 2 strips every day by miscell. route. active Not Available Not Available No t Available ergocalci ferol (vitamin D2) 1,250 mcg (50,000 unit) capsule TAKE 1 CAP PO ONCE every 2 weeks 2023 active Not Available Not Available Not Avai lable metformin ER 500 mg tablet,ex tended release 24 hr TAKE ONE TABLET BY MOUTH TWICE A DAY active Not Available Not Available No t Available OneTouch Ultra2 Meter active Not Available Not Available Not Available OneTouch Delica Plus Lancet 30 gauge active Not Available Not Available Not Available Vitals Date Recorded Body weight Body mass index (BMI) Body height Heart rate Systolic blood pressure Diastolic blood pressure Provider Name and Address Organization Details Last Updated DateTime 4 02151.8 8 g 36.4 kg/m2 157.48 cm 73 /min 136 mm[Hg] 82 mm[Hg] Korina Gagnon [facility] 4 10:35:11 Date Recorded Body height Body mass index (BMI) Body weight Heart rate Oxygen saturation Oxygen saturation in Arterial blood by Pulse oximetry Systolic blood pressure Diastolic blood pressure Provider Name and Address Organization Details Last Updated DateTime 4 157.48 cm 37.7 kg/m2 92867.0 3 g 66 /min 98 % 98 % 136 mm[Hg] 80 mm[Hg] Vicenta Gomes [facility] 4 10:43:37 Social History Question Answer Notes LastModified by Organizat ion Details LastModified Time Tobacco Smoking Status Never Smoker Vicenta Gomes [facility] 06/13/2024 10:44:38 Do You Have An Advance Directive? No [email or web address] Information not available 10/09/2023 What Is Your Level Of Alcohol Consumption? None [email or web address] Information not available 10/09/2023 What Is Your Level Of Caffeine Consumption? None [email or web address] Information not available 10/09/2023 Are You Currently Employed? 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 3-4 Times Per Week [email or web address] Information not available 10/09/2023 Do You Have A Medical Power Of Lithographic Etcher? No [email or web address] Information not available 10/09/2023 What Was The Date Of Your Most Recent Tobacco Screening? 10/14/2023 [email or web address] Information not available 10/09/2023 What Is Your Relationship Status? [email or web address] Information not available 10/09/2023 Do You Use Any Illicit Or Recreational Drugs? No [email or web address] Information not available 10/09/2023 Sex: Unknown Functional Status Question Answer Note LastModified by Organization D etails LastModified Time What is your exercise level? Moderate [email or web address] Information not available 10/09/2023 Mental Status None recorded. Family History Relationship Description Onset Age of this Age Resolved Age Notes LastModified by Organization Details LastModified Time Sister Asthma [email or web address] Not available 12:57:08 Sister Chronic obstructive pulmonary disease [email or web address] Not available 2023 12:57:08 Sister Hypertensive disorder [email or web address] Not available 2023 12:57:08 Father Diabetes mellitus [email or web address] Not available 2023 12:57:08 Father Heart disease [email or web address] Not available 2023 12:57:08 Father Hypertensive disorder [email or web address] Not available 2023 12:57:08 Father Hypercholest erolemia [email or web address] Not available 2023 12:57:08 Maternal Grandmother Heart disease [email or web address] Not available 2023 12:57:08 Maternal Grandmother Hypertensive disorder [email or web address] Not available 2023 12:57:08 Maternal Grandmother Hypercholest erolemia [email or web address] Not available 2023 12:57:08 Maternal Grandmother Cerebrovascu lar accident [email or web address] Not available 12:57:08 Mother Hypertensive disorder [email or web address] Not available 2023 12:57:08 Medical History Condition Response Diabetes Y Anxiety Disorder N Bleeding Disorder N Attention-deficit Hyperactivity Disorder N High Blood Pressure Y Arthritis N Hyperlipidemia N Cancer N Stroke N Thyroid Problems Y Asthma N Depression N COPD N Anemia N Seizures N Heart Disease N Fibromyalgia N Osteoporosis N Kidney Disease N Gynecological HistoryNo gynecological history recorded. Obstetrics History GPAL:G 0 P 0 0 0 0 Past Encounters Encounter ID Performer Location Encounter Start Date Encounter Closed Date Diagnosis/Indication Diagnosis SNOMED-CT Code Diagnosis ICD10 Code Diagnosis Note [id number] Bam Figueroa M.D. [facility] [address] [place] [address] 10/14/2023 10:18:19 10/14/2023 11:05:20 Type 2 diabetes mellitus 63979551 E11.65 Vitamin D deficiency 347 19450 E55.9 Hypothyroidism 08645802 E03.9 Body mass index 30+ - obesity 001411635 Z68.36 [id number] Bam Figueroa M.D. [facility] [address] [place] [address] 06/13/2024 10:29:55 06/13/2024 11:10:37 Type 2 diabetes mellitus without complication 950769036 E11.9 Vitamin D deficiency 347 08736 E55.9 Hypothyroidism 70090318 E03.9 Spencer thyroiditis 21 255000 E06.3 Health Concerns Section Related Observation LastModified by Organization Detai ls LastModified Time None Recorded Concern Status LastModified by Organization Details LastModified Time None Recorded Advance Directives Directive N: Payers Encounter Date Sequence Insurance Name Policy Number Policy Schultz Covered Member ID Schultz Member ID Guarantor Name 10/14/2023 1 [facility] [id number] Flroa Perera [id number] Flora Perera 06/13/2024 1 [facility] [id number] Flora Perera [id number] Flora Perera OBGyn Episode No OBEpisode recorded.
--- OUTSIDE RECORDS SUMMARY | 2024-09-27 11:35 | XMS_ITS | Referral Summary ---
Author Organization [facility] Address [address] [place] [address] Care Team Providers Care Supervisor Heat Treating Name Role Phone Willard Huynh MD Primary Care Provider [phone] Allergies Active Allergy Reactions Criticality Noted Date [...] hypertension 11/13/2020 Swelling of lower extremity 11/13/2020 Social History Tobacco Use Types Packs/Day Years Used Date Smoking Tobacco: Never Smokeless Tobacco: Never Personal Safety Answer Date Recorded Getting School Help Needed Not on file 10/03 Comments Unknown Sex and Gender Information Value Date Recorded Sex Assigned at Not on file Legal Sex Female 3:17 PM CDT Gender Identity Female 11/12/2020 1:16 PM CDT Sexual Orientation Not on file Last Filed [...] Treatment Not on file Insurance [facility] H[facility]PPO Address: [place] [address] Care Teams Supervisor Heat Treating Relationship Specialty Start Date End Date Willard Huynh MD PCP - General Internal Medicine 05/18/20
== END 2024-09-27 10:17 | disposition home or self-care (01) ==
LOC: ANHLAB 10:18
PROVIDERS: PCP Family Medicine; Visit Provider Podiatrist Foot & Ankle Surgery
DX: B35.1 Tinea unguium (principal)
CPT/HCPCS: 36415; 84450; 84460

== ENCOUNTER 2024-11-30 09:49 | Outpatient (CLI) | payer OTHER, SELFPAY ==
--- OUTSIDE RECORDS SUMMARY | 2024-11-30 10:12 | XMS_ITS | Clinical Summary ---
Author Organization [facility] Address [address] [place] [address] Care Team Providers Care Center Rep Name Role Phone Ismael Page MD Primary Care Provider [phone] Social History Tobacco Use Types Packs/Day Years [...] - 2023-2 5 season) 2024 09/21/2020, 08/24/2020 Pneumococcal Vaccine: 50+ Years (1 of 1 - PCV) 2024 Zoster Vaccines (1 of 2) 2024 [...] patient's age to complete this topic Insurance [id number] Care Teams Center Rep Relationship Specialty Start Date End Date Ismael Page MD [address] [place] [address] PCP - General FAMILY PRACTICE 04/04/21
--- OUTSIDE RECORDS SUMMARY | 2024-11-30 10:12 | XMS_ITS | Data Portability ---
Author Organization [facility], [address] [facility] ([place]) Address [address] [place] [address] Care Team Providers Care Layer Up Name Role Phone CYNDI LARA Primary Care Provider [phone] Assessment Encounter Date Assessment Date Assessment LastModified [...] D, 25-hydrox y, total, serum 2023 025 [facility] (Lab), [address] [place], [address], 11/17/2024 03:18:03 CMP, serum or plasma 2023 025 [facility], [address] [place] [address], [id number], 11/17/2024 03:22:00 hemoglobi n A1c + average glucose, QN, blood 2023 025 [facility], [address] [place] [address], [address], 11/17/2024 03:22:00 microalbu min, urine 2023 025 [facility], [address] [place] [address], [address], 11/17/2024 03:22:00 TSH, serum or plasma 2023 025 [facility], [address] [place] [address], [address], 11/17/2024 03:22:00 vitamin B12, serum 2023 025 [facility], [address] [place] [address], [address], 11/17/2024 03:22:00 lipid panel, serum 2023 025 [facility], [address] [place] [address], [address], 11/17/2024 03:22:00 vitamin D, 25-hydrox y, total, serum 2023 024 [facility] (Lab), [address] [place] [address], [address], 03/10/2024 09:48:19 HbA1c (hemoglob in A1c), blood 2023 024 [facility] (Lab), [address] [place], [address], 03/08/2024 17:22:20 TSH, serum, reflex free T4 2023 024 [facility] (Lab), [address] [place] [address], [address], 03/08/2024 20:23:22 Referral None recorded. Procedures None recorded. Surgeries None recorded. Imaging None recorded. Medication Orders ergocalci ferol (vitamin D2) 1,250 mcg (50,000 unit) capsule 2023 024 [facility], [facility] [place], [address], 06/13/2024 13:14:32 OneTouch Ultra Test strips 2023 024 [email or web address] [facility], [facility] [place], [address], 10/18/2023 15:24:33 Patient TargetsNo targets recorded. Patient InstructionsNo instructions recorded. Reason for Referral None Reported. Results Created Date Observation Date Name Description Value Unit Range Abnormal Flag Note LastModifiedBy Organization Detail LastModifiedTime 06/13/2006/13/2024 hemog lobin A1C, finge rstic k fingerstick A1C endo Not Available [facility] [address] [place] [address], [id number], 06/13/2024 10:41:04 06/13/2006/13/2024 hemog lobin A1C, finge rstic k hemoglobin A1C, finger 6.0 %_A1C 4.3 - 5.6 high Not Available [facility] [address] [place] [address], [address], 06/13/2024 10:41:04 06/13/2006/13/2024 hemog lobin A1C, finge rstic k fingerstick estimated [address] Not Available [facility] [address] [place] [address], [id number], 06/13/2024 10:41:04 Result Notes None recorded. Problems Name Problem SNOMED Code Status Onset Date Resolution Date Notes Provider Name and Address Organization Details Recorded Time Type 2 diabetes mellitus without complicati on 840351573 Active 2023 Doris Chaparro [facility] 4 11:53:08 Spencer thyroiditi s 63516611 Active 2023 [facility] 4 12:04:25 Hypothyroi dism 36306938 Active 2023 [facility] 4 12:04:39 Type 2 diabetes mellitus 35349118 Active 2023 with hyperglyce trinity Fatuma Bowman [facility] 4 12:05:36 Vitamin D deficiency 73403568 Active 2023 Fatuma Bowman [facility] 4 12:28:40 Problem Notes None recorded. Procedures [...] Name and Address Organization Details Recorded Time 6432736 Substance with sulfonami de structure and antibacte rial mechanism of action (substanc e) medicatio n Not available Not available Not available 08/19/20232018 17407 8003 SNOMED Not Available [facility] 4 04:42:08 Medications Name Sig Start Date Stop Date Status Note LastModified by Organization Details LastModified Time metformin 500 mg tablet 02/07 completed Not Available Not Available Not Available doxycycline hyclate 100 mg capsule 06/13 completed Not Available Not Available Not Available atorvastatin 10 mg tablet active Not Available Not Available Not Available metoprolol succinate ER 50 mg tablet,exten ded release 24 hr active Not Available Not Available Not Available prednisone 20 mg tablet 06/13 completed Not Available Not Available Not Available Synthroid 100 mcg tablet TAKE 1 TAB BY MOUTH EVERY DAY ON AN EMPTY STOMACH 2024 active Not Available Not Available Not Avai lable chlorthalido ne 25 mg tablet active Not Available Not Available Not Available terbinafine HCl 250 mg tablet active Not Available Not Available Not Available OneTouch Ultra Test strips USE TO TEST ONCE DAILY 2024 active Not Available Not Available Not Avai lable ergocalcifer ol (vitamin D2) 1,250 mcg (50,000 unit) capsule TAKE 1 CAP PO ONCE every 2 weeks 2023 active Not Available Not Available Not Avai lable metformin ER 500 mg tablet,exten ded release 24 hr TAKE ONE TABLET BY MOUTH TWICE A DAY 2024 active Not Available Not Available Not Avai lable OneTouch Ultra2 Meter active Not Available Not Available Not Available OneTouch Delica Plus Lancet 30 gauge active Not Available Not Available Not Available Vitals Date Recorded Body weight Body mass index (BMI) Body height Heart rate Systolic blood pressure Diastolic blood pressure Provider Name and Address Organization Details Last Updated DateTime 4 28427.8 8 g 36.4 kg/m2 157.48 cm 73 /min 136 mm[Hg] 82 mm[Hg] Korina Gagnon [facility] 4 10:35:11 Date Recorded Body height Body mass index (BMI) Body weight Heart rate Oxygen saturation Oxygen saturation in Arterial blood by Pulse oximetry Systolic blood pressure Diastolic blood pressure Provider Name and Address Organization Details Last Updated DateTime 4 157.48 cm 37.7 kg/m2 59660.0 3 g 66 /min 98 % 98 % 136 mm[Hg] 80 mm[Hg] Vicenta Gomes [facility] 4 10:43:37 Social History Question Answer Notes LastModified by Organizat ion Details LastModified Time Tobacco Smoking Status Never Smoker Vicenta Gomes [facility] 06/13/2024 10:44:38 Do You Have An Advance Directive? No [email or web address] Information not available 10/09/2023 What Is Your Level Of Caffeine Consumption? None [email or web address] Information not available 10/09/2023 How Many Times Per Week Do You Exercise? 3-4 Times Per Week [email or web address] Information not available 10/09/2023 Do You Have A Medical Power Of Corrugator Operator Helper? No [email or web address] Information not available 10/09/2023 What Was The Date Of Your Most Recent Tobacco Screening? 10/14/2023 [email or web address] Information not available 10/09/2023 What Is Your Relationship Status? [email or web address] Information not available 10/09/2023 Sex: Unknown Functional Status Question Answer Note LastModified by Organizat ion Details LastModified Time Do you use any illicit or recreational drugs? No [email or web address] Information not available 10/09/2023 What is your level of alcohol consumption? None [email or web address] Information not available 10/09/2023 Are you currently employed? Yes [email or web address] Information not available 10/09/2023 What is your occupation? [employer] [email or web address] Information not available 10/09/2023 What is your exercise level? Moderate [email or web address] [...] SNOMED-CT Code Diagnosis ICD10 Code Diagnosis Note [id number] Bam Figueroa M.D. [facility] ([place]) [address] [place] [address] 10/14/2023 10:18:19 10/14/2023 11:05:20 Type 2 diabetes mellitus 40852973 E11.65 Vitamin D deficiency 347 17474 E55.9 Hypothyroidism 41098813 E03.9 Body mass index 30+ - obesity 903750512 Z68.36 [id number] Bma Figueroa M.D. [facility] ([place] [address] [place] [address] 06/13/2024 10:29:55 06/13/2024 11:10:37 Type 2 diabetes mellitus without complication 031616163 E11.9 Vitamin D deficiency 347 65446 E55.9 Hypothyroidism 18992557 E03.9 Spencer thyroiditis 21 224886 E06.3 Health Concerns Section Related Observation LastModified by Organization Detai ls LastModified Time None Recorded Concern Status LastModified by Organization Details LastModified Time None Recorded Advance Directives Directive N: Payers Insurance Date Sequence Insurance Name Policy Number Policy Schultz Covered Member ID Schultz Member ID Guarantor Name 06/15/2024 1 [facility] [id number] Flora Perera [id number] Flora Perera OBGyn Episode No OBEpisode recorded.
--- OUTSIDE RECORDS SUMMARY | 2024-11-30 10:12 | XMS_ITS | Clinical Summary ---
[facility] Organization [facility] Address [address] [place] [address] Care Team Providers Care Panel Assembler Name Role Phone Willard Huynh MD Primary Care Provider [phone] Allergies Active Allergy Reactions Criticality Noted Date [...] on file Insurance [employer] Care Teams Panel Assembler Relationship Specialty Start Date End Date Willard Huynh MD PCP - General Internal Medicine 05/18/20
--- OUTSIDE RECORDS SUMMARY | 2024-11-30 10:12 | XMS_ITS | Referral Summary ---
Author Organization [facility] Address [address] [place] [address] Care Team Providers Care Communications Planner Name Role Phone Willard Huynh MD Primary Care Provider [phone] Allergies Active Allergy Reactions Criticality Noted Date [...] on file Insurance [employer] Care Teams Communications Planner Relationship Specialty Start Date End Date Willard Huynh MD PCP - General Internal Medicine 05/18/20
[2024-11-30 11:16] LABS: Alanine Aminotransferase 17 U/L (6-35); Albumin Level 4.4 g/dL (3.5-5.1); Alkaline Phosphatase 107 U/L (38-126); Anion Gap 8 mmol/L (4-12); Aspartate Amino Transferase 23 U/L (14-36); Bilirubin,Total 0.6 mg/dL (0.2-1.3); Blood Urea Nitrogen 16 mg/dL (7-17); Calcium 9.4 mg/dL (8.4-10.2); Carbon Dioxide 29 mmol/L (22-30); Chloride 101 mmol/L (98-107); Cholesterol 202 mg/dL (0-200); Estimated Glomerular Filt Rate > 60; Glucose 88 mg/dL (65-110); HDL Direct 49 mg/dL; LDL Cholesterol Calculated 126 mg/dL (<130); Osmolality Calculated 286 mOsm/kg (285-295); Sodium 138 mmol/L (137-145); Total Protein 7.4 g/dL (6.3-8.2); Triglycerides 137 mg/dL (<150)
[2024-11-30 11:33] LABS: Hemoglobin A1C 5.7 % (<5.7)
[2024-11-30 12:14] LABS: Creatinine Urine 100.8 mg/dL
[2024-11-30 12:17] LABS: MALB Creatinine Ratio 6.4 mg/g (0-30); Microalbumin Urine Random 6.5 mg/L (0-16.7)
[2024-11-30 12:41] LABS: Thyroid Stimulating Hormone Reflex 1.88 u/IU/mL (0.36-3.74)
[2024-12-02 09:28] LABS: Vitamin D 25 Hydroxy 79 ng/mL (30-100)
== END 2024-11-30 09:50 | disposition home or self-care (01) ==
LOC: CHSLAB 09:53
PROVIDERS: PCP Family Medicine; Visit Provider Internal Medicine Endocrinology, Diabetes & Metabolism
DX: E11.9 Type 2 diabetes mellitus without complications (principal); E55.9 Vitamin D deficiency, unspecified
CPT/HCPCS: 36415; 80053; 80061; 82043; 82306; 82607; 83036; 84443

== ENCOUNTER 2024-12-27 09:52 | Outpatient (CLI) | payer OTHER, SELFPAY ==
[2024-12-27 10:26] LABS: Alanine Aminotransferase 19 U/L (6-35); Aspartate Amino Transferase 26 U/L (14-36)
--- OUTSIDE RECORDS SUMMARY | 2024-12-27 10:47 | XMS_ITS | Data Portability ---
Author Organization [facility], [address] [facility] ([place]) Address [address] [place] [address] Care Team Providers Care Backend Java Developer Name Role Phone CYNDI LARA Primary Care Provider Assessment Encounter Date Assessment Date Assessment LastModified [...] of the most recent eye examination. [email or web address] Not available 06/13/2024 16:54:15 12/13/2024 12/13/2024 REASONS FOR FOLLOW-UP: 1. Type 2 diabetes mellitus. 2. Vitamin D deficiency. 3. 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 HPI: Ms. Perera is a delightful female [...] in 2023. No specific arthralgias or myalgias. The patient had a 25-hydroxyvitamin D level of 79 in November 2024 while taking ergocalciferol 50,000 units once every 2 weeks Ms. Perera learned of a diagnosis of type 2 diabetes mellitus based on hemoglobin A1c of 7.1% May 29, 2023. She is unaware of any microvascular complications from her diabetes. She denies peripheral paresthesias. She is assessing glucose values at least once daily at various times before meals and bedtime. Average glucose 115 with a range of 80 to 166. Denies symptomatic hypoglycemia. A1c value improved to 5.7% in November 2024. BMI is greater than 35. This has [...] sensation of the feet normal on examination December 13, 2024. Reviewed recent diagnostic tests, lab work, and imaging. These were reviewed with the patient. DIAGNOSTIC DATA: March 2023: a 25-hydroxyvitamin D level was [...] TSH 2.03. AST and ALT were normal. November 2024: A 25-hydroxyvitamin D level was 79. Urine fixuajqucckr-ps-bv eatinine ratio was normal. Creatinine 0.81. AST, ALT, alkaline phosphatase were normal. Cholesterol 202, triglycerides 137, HDL 49, LDL 125 reflective of atorvastatin 10 mg daily. Vitamin B12 was 454. Hemoglobin A1c was 5.7%. TSH 1.88. ASSESSMENT: 1. Type 2 diabetes mellitus with no currently documented microvascular complications. 2. History of impaired fasting glucose. 3. Primary hypothyroidism. 4. Vitamin D deficiency. 5. Thyroid ultrasound December 25, 2020, revealing heterogeneous hypervascular thyroid consistent with chronic lymphocytic thyroiditis. No discreet nodules per the dictated report. 6. Hyperlipidemia: LDL cholesterol above goal in November 2024 reflective of a dose of atorvastatin 10 mg daily. RECOMMENDATIONS: 1. Glycemic goals were reviewed in [...] to meals and other medications. 13. Change to fkyb-vxg-sakcyly vitamin D3 at 1000 international units daily with food once she runs out of 50,000 units of ergocalciferol every 2 weeks. 14. We discussed the option today of introducing a GLP-1 agonist medication for adding an SGLT-2 inhibitor. Ms. Perera verbalized understanding of our discussion and desires to continue metformin. 15. We will obtain a copy of the most recent eye examination. 16. We reviewed lipid goals again today in detail. We discussed the option of increasing atorvastatin based on her next lipid profile. 17. The patient will have hemoglobin A1c, 25-hydroxyvitamin D level, and fasting lipid panel performed in May 2025. 18. Ms. Perera was congratulated regarding her excellent glycemic control! dpk Not available 12/13/2024 13:06:34 Plan of Treatment Reminders Order Date Submit Date Provider Last Modified By Organization Details Last Modified Time Details Appointments Establish ed Patient 15.EST 2024 01:15P M Dr. Bam Figueroa Not available Not available Not available Lab vitamin D, 25-hydrox y, total, serum [address] (Lab), [address] [place], [address], 12/13/2024 11:28:20 HbA1c (hemoglob in A1c), blood [address] (Lab), [address] [place], [address], 12/13/2024 11:28:20 lipid panel, serum [address] (Lab), [address] [place] [address], [address], 12/13/2024 11:28:20 vitamin D, 25-hydrox y, total, serum 2023 025 [facility] (Lab), [address] [place] [address], [address], 12/06/2024 06:40:44 CMP, serum or plasma 2023 025 [facility], [address] [place] [address], [address], 12/02/2024 08:25:11 hemoglobi n A1c + average glucose, QN, blood 2023 025 [facility], [address] [place] [address], [address], 12/02/2024 08:25:11 microalbu min, urine 2023 025 [facility], [address] [place] [address], [address], 12/02/2024 08:25:11 TSH, serum or plasma 2023 025 [facility], [address] [place] [address], [address], 12/02/2024 08:25:11 vitamin B12, serum 2023 025 [facility], [address] [place] [address], [address], 12/02/2024 08:25:11 lipid panel, serum 2023 025 [facility], [address] [place] [address], [address], 12/02/2024 08:25:11 vitamin D, 25-hydrox y, total, serum 2023 024 [facility] (Lab), [address] [place], [address], 03/10/2024 09:48:19 HbA1c (hemoglob in A1c), blood 2023 024 [facility] (Lab), [address] [place], [address], 03/08/2024 17:22:20 TSH, serum, reflex free T4 2023 024 [facility] (Lab), [address] [place], [address], 03/08/2024 20:23:22 Referral None recorded. Procedures None recorded. Surgeries None recorded. Imaging None recorded. Medication Orders metformin ER 500 mg tablet,ex tended release 24 hr 2024 025 [facility], [address] [place], [address], 12/13/2024 11:38:36 Synthroid 100 mcg tablet 2024 025 [facility], [address] [place], [address], 12/13/2024 11:38:35 ergocalci ferol (vitamin D2) 1,250 mcg (50,000 unit) capsule 2023 024 [facility], [address] [place], [address], 12/13/2024 11:37:44 OneTouch Ultra Test strips 2023 024 [email or web address] [facility], [address] [place], [address], 10/18/2023 15:24:33 Patient TargetsNo targets recorded. Patient InstructionsNo instructions recorded. Reason for Referral None Reported. Results Created Date Observation Date Name Description Value Unit Range Abnormal Flag Note LastModifiedBy Organization Detail LastModifiedTime 06/13/20 24 06/13/2024 hemog lobin A1C, finge rstic k fingerstick A1C endo Not Available [facility] [address] [place] [address], [address], 06/13/2024 10:41:04 06/13/20 24 06/13/2024 hemog lobin A1C, finge rstic k hemoglobin A1C, finger 6.0 %_A1C 4.3 - 5.6 high Not Available [facility] [address] [place] [address], [address], 06/13/2024 10:41:04 06/13/20 24 06/13/2024 hemog lobin A1C, finge rstic k fingerstick estimated [address] Not Available [facility] [address] [place] [address], [address], 06/13/2024 10:41:04 Result Notes None recorded. Problems Name Problem SNOMED Code Status Onset Date Resolution Date Notes Provider Name and Address Organization Details Recorded Time Type 2 diabetes mellitus without complicati on 890226436 Active 2023 [facility] 4 11:53:08 Spencer thyroiditi s 43400924 Active 2023 [facility] 4 12:04:25 Hypothyroi dism 20757756 Active 2023 Fatuma [facility] 4 12:04:39 Type 2 diabetes mellitus 00246460 Active 2023 with hyperglyce trinity [facility] 4 12:05:36 Vitamin D deficiency 42463335 Active 2023 [facility] 4 12:28:40 Problem Notes None recorded. Procedures [...] Name and Address Organization Details Recorded Time 3599143 Substance with sulfonami de structure and antibacte rial mechanism of action (substanc e) medicatio n Not available Not available Not available 08/19/20232018 20855 8003 SNOMED Not Available [facility] 04:42:08 Medications Name Sig Start Date Stop [...] TAB PO QD ON AN EMPTY STOMACH 2024 active Not [...] 1 CAP PO ONCE every 2 weeks 12/13 completed Not Available Not Available Not Available metformin ER 500 mg tablet,exten ded release 24 hr Take 1 tablet twice a day by oral route for 30 days, for diabetes . 2024 active Not Available Not Available Not Avai lable OneTouch Ultra2 Meter active Not Available Not Available Not Available OneTouch Delica Plus Lancet 30 gauge active Not Available Not Available Not Available Vitals Date Recorded Body weight Body mass index (BMI) Body height Heart rate Systolic blood pressure Diastolic blood pressure Provider Name and Address Organization Details Last Updated DateTime 4 91164.8 8 g 36.4 kg/m2 157.48 cm 73 /min 136 mm[Hg] 82 mm[Hg] Korina Gagnon [facility] 4 10:35:11 Date Recorded Body height Body mass index (BMI) Body weight Heart rate Respiratory rate Oxygen saturation Oxygen saturation in Arterial blood by Pulse oximetry Systolic blood pressure Diastolic blood pressure Provider Name and Address Organization Details Last Updated DateTime 5 157.48 cm 37.7 kg/m2 92972.0 3 g 92 /min 20 /min 98 % 98 % 128 mm[Hg] 76 mm[Hg] Renetta Licea [facility] 5 10:51:22 Date Recorded Body height Body mass index (BMI) Body weight Heart rate Oxygen saturation Oxygen saturation in Arterial blood by Pulse oximetry Systolic blood pressure Diastolic blood pressure Provider Name and Address Organization Details Last Updated DateTime 4 157.48 cm 37.7 kg/m2 21046.0 3 g 66 /min 98 % 98 % 136 mm[Hg] 80 mm[Hg] Vicenta Cheemaiott [facility] 4 10:43:37 Social History Question Answer Notes LastModified by Software Technology ion Details LastModified Time Tobacco Smoking Status Never Smoker [facility] 06/13/2024 10:44:38 Do You Have An Advance Directive? No [email or web address] Information not available 10/09/2023 What Is Your Level Of Caffeine Consumption? None [email or web address] Information not available 10/09/2023 How Many Times Per Week Do You Exercise? 3-4 Times Per Week [email or web address] Information not available 10/09/2023 Do You Have A Medical Power Of [place] Dashboard Developer? No [email or web address] Information not available 10/09/2023 What Was The Date Of Your Most Recent Tobacco Screening? 10/14/2023 [email or web address] Information not available 10/09/2023 What Is Your Relationship Status? [email or web address] Information not available 10/09/2023 Sex: Unknown Functional Status Question Answer Note LastModified by Data TV Networksizat ion Details LastModified Time Do you use any illicit or recreational drugs? No [email or web address] Information not available 10/09/2023 What is your level of alcohol consumption? None [email or web address] Information not available 10/09/2023 Are you currently employed? 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 [facility]) [address] [place] [address] 10/14/2023 10:18:19 10/14/2023 11:05:20 Type 2 diabetes mellitus 36343992 E11.65 Vitamin D deficiency 347 [address]50 E55.9 Hypothyroidism 19215415 E03.9 Body mass index 30+ - obesity 210678256 Z68.36 [id number] Bam Figueroa M.D. [facility] [address] [place] [address] 06/13/2024 10:29:55 06/13/2024 11:10:37 Type 2 diabetes mellitus without complication 926300573 E11.9 Vitamin D deficiency 347 89448 E55.9 Hypothyroidism 76557684 E03.9 Spencer thyroiditis 21 634330 E06.3 [id number] Bam Figueroa M.D. [facility] [address] [place] [address] 12/13/2024 10:40:27 12/13/2024 11:33:42 Type 2 diabetes mellitus 27976763 E11.65 Vitamin D deficiency 347 57745 E55.9 Spencer thyroiditis 21 198049 E06.3 Hypothyroidism 95058475 E03.9 Body mass index 30+ - obesity 641010033 Z68.37 Health Concerns Section Related Observation LastModified by Organization Detai ls LastModified Time None Recorded Concern Status LastModified by Organization Details LastModified Time None Recorded Advance Directives Directive N: Payers Insurance Date Sequence Insurance Name Policy Number Policy Schultz Covered Member ID Schultz Member ID Guarantor Name 12/16/2024 1 [facility] [id number] Flora Perera [id number] Flora Perera OBGyn Episode No OBEpisode recorded.
--- OUTSIDE RECORDS SUMMARY | 2024-12-27 10:47 | XMS_ITS | Referral Summary ---
Author Organization [facility] Address [address] [place] [address] Care Team Providers Care Bicycle I Assembler Name Role Phone Willard Huynh MD Primary Care Provider [phone] Allergies Active Allergy Reactions Criticality Noted Date [...] 2:51 PM CDT Height 160 cm (5' 3) 11/13/2020 2:51 PM CDT Body Mass Index 35.61 11/13/2020 2:51 PM CDT Plan of Treatment Not on file Insurance CHOICE PLUS [facility] H[facility]/PPO Address: [place] [address] Care Teams Bicycle I Assembler Relationship Specialty Start Date End Date Willard Huynh MD PCP - General Internal Medicine 05/18/20
--- OUTSIDE RECORDS SUMMARY | 2024-12-27 10:47 | XMS_ITS | Clinical Summary ---
Author Organization [facility] [place] [facility] Address [address] [place] [address] Care Team Providers Care Supervisor Pipe Finishing Name Role Phone Willard Huynh MD Primary Care Provider [phone] Allergies Active Allergy Reactions Criticality Noted Date [...] on file Insurance CHOICE PLUS Care Teams Supervisor Pipe Finishing Relationship Specialty Start Date End Date Willard Huynh MD PCP - General Internal Medicine 05/18/20
== END 2024-12-27 09:53 | disposition home or self-care (01) ==
PROVIDERS: PCP Family Medicine; Visit Provider Podiatrist Foot & Ankle Surgery
DX: B35.1 Tinea unguium (principal)
CPT/HCPCS: 36415; 84450; 84460

== ENCOUNTER 2025-05-16 08:02 | Outpatient (CLI) | payer OTHER, SELFPAY ==
[2025-05-16 08:17] LABS: Hematocrit 39.6 % (35.0-49.0); Hemoglobin 13.3 g/dL (12.0-15.0); Immature Granulocyte Percent A 0.5 % (0.0-0.0); Lymphocytes Absolute Auto 3.44 K/mm3 (1.10-4.50); Mean Corpuscular HGB Conc 33.6 g/dL (32-36); Mean Corpuscular Hemoglobin 29.7 pg (27.0-31.0); Mean Corpuscular Volume 88.4 fL (78.0-102.0); Nucleated Red Blood Cells Absolute Auto 0.00 K/mm3 (0.00-0.00); Nucleated Red Blood Cells Perc 0.0 % (0-0.0); Platelet Count Result 309 K/mm3 (150-420); Red Blood Count 4.48 M/mm3 (4.20-5.40); White Blood Count 13.5 K/mm3 (4.8-10.8)
--- OUTSIDE RECORDS SUMMARY | 2025-05-16 08:17 | XMS_ITS | Clinical Summary ---
Author Organization [facility] Address [address] [place] [address] Care Team Providers Care Tight Rope Walker Name Role Phone Ismael Page MD Primary Care Provider [phone] Social History Tobacco Use Types Packs/Day Years [...] 11:10 AM CDT Height 160 cm (5' 3) 11/02/2003 11:10 AM CDT Body Mass Index [...] wi th HPV 2004 Mammogram Screening 2014 Pneumococcal Vaccine: 50+ Years (1 of 1 - PCV) 2024 Zoster Vaccines (1 of 2) 2024 DTaP, Tdap and Td Vaccines ( 2 - Td or Tdap) 10/06/2024 10/06/2014 COVID-19 Vaccine (3 2024-2 6 season) 2025 09/21/2020, 08/24/2020 Influenza Adult (#1) 2025 Hepatitis A Vaccines Aged Out No long er eligible based on patient's age to complete this topic Meningococcal B Vaccine Aged Out No l onger eligible based on patient's age to complete this topic Meningococcal Vaccine Aged Out No griselda marylin eligible based on patient's age to complete this topic RSV Immunizations Under 20 Months Aged Out No longer eligible b ased on patient's age to complete this topic Insurance [id number] Care Teams Tight Rope Walker Relationship Specialty Start Date End Date Ismael Page MD [address] [place] [address] PCP - General FAMILY PRACTICE 04/04/21
--- OUTSIDE RECORDS SUMMARY | 2025-05-16 08:17 | XMS_ITS | Clinical Summary ---
Author Organization [facility] Address [address] [place] [address] Care Team Providers Care Hydrogen Plant Operator Name Role Phone Andrew Ceballos MD Primary Care Provider Allergies Active Allergy Reactions Criticality Noted Date Comments Sulfa (Sulfonamide Antibiotics) Rash Medium 10/19 Medications ergocalciferol (Vitamin D2) 50,000 unit capsule Take 1 capsule (50,000 Units total) by mouth Every other week 12/19/19 19 Active metoprolol XL (TOPROL-XL) 50 mg extended release tablet Take 50 mg by mouth daily Active Lo Loestrin Fe 1 mg-10 mcg (24)/10 mcg (2) tablet daily 08/30/19 21 Active chlorthalidone (HYGROTON) 25 mg tablet Take 1 tablet (25 mg total) by mouth daily Active terbinafine (LamiSIL) 250 mg tablet Take 1 tablet (250 mg total) by mouth 2 (two) times a week Active Synthroid 100 mcg tablet Take 1 tablet (100 mcg total) by mouth pest control operator before breakfast 05/09/20 25 Active metFORMIN XR (GLUCOPHAGE XR) 500 mg 24 hr tablet Take 1 tablet (500 mg total) by mouth 2 (two) times a day 180 tablet 1 05/09/20 25 Active atorvastatin (LIPITOR) 20 mg tablet Take 1 tablet (20 mg total) by mouth daily 90 tablet 3 05/11/20 25 026 Active levothyroxine 100 mcg/mL solution daily 12/13/19 19 025 Discontinued metFORMIN XR (GLUCOPHAGE XR) 500 mg 24 hr tablet Take 1 tablet (500 mg total) by mouth 2 (two) times a day 025 Discontinued(Re order) atorvastatin (LIPITOR) 10 mg tablet Take 1 tablet (10 mg total) by mouth daily 025 Discontinued(Al ternate therapy) Active Problems Problem Noted Date Diagnosed Date Type 2 diabetes mellitus wit hout complication, without long-term current use of insulin 05/09/2025 Assessment & Plan (05/09/2025 1:08 PM CDT): A1c at goal on current therapy. I see no compelling reason to switch metformin to another agent, but we did discuss the benefits of GLP1 agonist therapy. She will look into this. Continue metformin XR 500 mg BID for now. Labs today except urine malb:Cr, which is due at our next visit. Recommend yearly eye exams. There is no evidence of neuropathy on monofilament exam today. Hypothyroidism 05/09/2025 Assessment & Plan (05/09/2025 1:07 PM CDT): Check TSH. Continue brand name Synthroid. Vitamin D deficiency 05/09/2025 Assessment & Plan (05/09/2025 1:08 PM CDT): On D2 QoD. Palpitations 11/13/2020 Mixed hyperlipidemia 11/13/2020 Assessment & Plan (05/09/2025 1:06 PM CDT): Check lipids. Continue atorvastatin. Family history of premature CAD 11/13/2020 Essential hypertension 11/13/2020 Assessment & Plan (05/09/2025 1:07 PM CDT): At goal on current therapy. Swelling of lower extremity 11/13/2020 Encounters Date Type Department Care Team Description 05/11/2025 Results Follow-Up [facility] [address] [place] [phone] Suman Diana MD Comprehensive metabolic panel, CBC with auto differential, Vitamin D 25 hydroxy, Additional followed-up results: 2 05/09/2025 10:00 AM CDT Office Visit [facility] [address] [address] Suman Diana MD Type 2 diabetes mellitus without complication, without long-term current use of insulin (HCC); Mixed hyperlipidemia; Essential hypertension; Hypothyroidism, unspecified type; Vitamin D deficiency from Last 3 Months Surgical History Surgery Date Site/Laterality Comments SECTION 03/20/2002 - 04/18/2002 SECTION 02/17/2005 - 03/19/2005 Medical History Medical History Date Comments Hypertension Hyperlipidemia Obesity Thyroid disease Spencer's thyr oiditis H/O section 03/2002 H/O section 02/2005 Family History Medical History Relation Name Comments Diabetes Father Heart attack Father Age 53 Heart failure Father Cause of age 65 No Known Problems Mother Diabetes type II Sister Relation Name Status Comments Father (Age 65) Mother Alive Sister Alive Social History Tobacco Use Types Packs/Day Years Used Date Smoking Tobacco: Never Smokeless Tobacco: Never Alcohol Use Standard Drinks/Week Comments Yes 0 (1 standard drink = 0.6 oz pur e alcohol) PHQ-2 Answer Date Recorded PHQ-2 Total Score (If total score is 3 or more points, staff should administer the PHQ-9) 0 05/09/2025 AUDIT-C Answer Date Recorded Q1: How often do you have a drink containing alc ohol? Monthly or less 05/09/2025 Q2: How many drinks containi ng alcohol do you have on a typical day when you are drinking? 1 or 2 05/09/2025 Q3: How often do you have si x or more drinks on one occasion? Never 05/09/2025 Exercise Vital Sign Answer Date Recorde d On average, how many days pe r week do you engage in moderate to strenuous exercise (like a brisk walk)? 3 days 05/09/2025 On average, how many minutes do you engage in exercise at this level? 30 min 05/09/2025 Comments Unknown Sex and Gender Information Value Date Recorded Sex Assigned at Not on file Legal Sex Female 3:17 PM CDT Gender Identity Female 11/12/2020 1:16 PM CDT Sexual Orientation Straight 05/09/2025 9: 55 AM CDT Obstetrics History Last Filed Vital Signs Vital Sign Reading Time Taken Comments Blood Pressure 130/84 05/09/2025 9:53 AM CDT Pulse 91 05/09/2025 9:53 AM CDT Temperature - - Respiratory Rate - - Oxygen Saturation 99% 05/09/2025 9:53 AM CDT Inhaled Oxygen Concentration - - Weight 92.4 kg (203 lb 12.8 oz) 05/09/2025 9:53 AM CDT Height 157.5 cm (5' 2) 05/09/2025 9:53 AM CDT Body Mass Index 37.28 05/09/2025 9:53 AM CDT Plan of Treatment Health Maintenance Due Date Last Done Comments Albumin Creatinine Ratio, Urine 1974 Breast Cancer Screening-Mammogram 1974 Cervical Cancer Screening 1974 Colon Cancer Screening-Colonoscopy 1974 Hemoglobin A1C 1974 Hepatitis C Screening 1974 eGFR 1974 Dilated Eye Exam 1974 Foot Exam 1974 Hepatitis B Screening 1992 Regular Well Visit/Exam 18-64 1992 Pneumococcal vaccine <65 (1 of 2 - PCV) 1993 Zoster Vaccine (1 of 2) 2024 DTaP/Tdap/Td Vaccine (2 - Td or Tdap) 10/06/2024 Influenza Vaccine (#1) 2025 Depression Screening 05/09/2026 05/09/2025 Lipid Panel 05/09/2026 05/09/2025, 04/2 01/2021, 05/17/2020 Procedures Procedure Name Priority Date/Time Associated Diagnosis Comments TSH Routine 05/09/2025 10:29 AM CDT Hypothyroidism, unspecified type LIPID PANEL Routine 05/09/2025 10:29 AM CDT Mixed hyperlipidemia VITAMIN D 25 HYDROXY Routine 05/09/2025 10:29 AM CDT Vitamin D deficiency CBC WITH AUTO DIFFERENTIAL Routine 05/09/2025 10:29 AM CDT Type 2 diabetes mellitus without complication, without long-term current use of insulin (HCC) COMPREHENSIVE METABOLIC PANEL Routine 05/09/2025 10:29 AM CDT Type 2 diabetes mellitus without complication, without long-term current use of insulin (HCC) from Last 3 Months Results * (ABNORMAL) CBC with auto differential (05/09/2025 10:29 AM CDT) WBC 16.2(H) 3.5 - 10.0 K/uL [facility] RBC 4.59 3.50 - 5.50 M/uL [facility] Hemoglobin 14.1 11.5 - 16.5 g/dL [facility] Hematocrit 39.4 35.0 - 55.0 % [facility] MCV 85.7 75.0 - 100.0 fL [facility] MCH 30.60 25.00 - 35.00 pg [facility] MCHC 35.70 31.00 - 38.00 g/dL [facility] RDW 13.0 11.0 - 16.0 % [facility] Platelets 315 140 - 400 K/uL [facility] MPV 8.9 8.0 - 11.0 fL [facility] Granulocyte, Absolute 11.1(H) 1.2 - 8.0 K/uL [facility] Lymphocyte, Absolute 4.1 0.5 - 5.0 K/uL [facility] Monocyte, Absolute 1.0 0.1 - 1.5 K/uL [facility] Granulocyte, Percentage 68.2 35.0 - 80.0 % [facility] Lymphocyte, Percentage 25.3 15.0 - 50.0 % [facility] Monocyte, Percentage 6.5 2.0 - 15.0 % [facility] Blood 05/09/2025 10:2 9 AM CDT 05/09/2025 10:35 AM CDT us Suman Diana MD LAB BLOOD ORDERABLES nal Result [facility] [address] [phone], [facility] * Vitamin D 25 hydroxy (05/09/2025 10:29 AM CDT) Vitamin D 52.66 >29.00 ng/ml [facility] Blood 05/09/2025 10:2 9 AM CDT 05/09/2025 10:35 AM CDT Suman Diana MD LAB BLOOD ORDERABLES Fi nal Result [facility] [address] [facility] [address] * TSH (05/09/2025 10:29 AM CDT) Pathologist [facility] TSH 2.61 0.27 - 4.20 uIU/mL [facility] Blood 05/09/2025 10:2 9 AM CDT 05/09/2025 10:35 AM CDT Suman Diana MD LAB BLOOD ORDERABLES Fi nal Result Performing Organization Address City/[facility]/ZIP Co de Phone Number [facility] [address] [place] [address] * (ABNORMAL) Lipid panel (05/09/2025 10:29 AM CDT) Triglyceride 177(H) 0 - 150 mg/dL [facility] Cholesterol 206(H) 0 - 200 mg/dL [facility] HDL 41(L) >45 mg/dL [facility] LDL-Calculated 130 mg/dL [facility] CHOL/HDL Risk Ratio 5 Ratio [facility] LDL/HDL Risk Ratio 3 Ratio [facility] Blood 05/09/2025 10:2 9 AM CDT 05/09/2025 10:35 AM CDT Suman Diana MD LAB BLOOD ORDERABLES Fi nal Result [facility] [address] [facility] [address] * (ABNORMAL) Comprehensive metabolic panel (05/09/2025 10:29 AM CDT) Glucose 81 74 - 200 mg/dL [facility] BUN 14 6 - 20 mg/dL [facility] Creatinine 0.78 0.70 - 1.30 mg/dL [facility] BUN/Creat Ratio 18 Ratio [facility] Bilirubin, Total 0.3 0.0 - 1.2 mg/dL [facility] AST (SGOT) 15 0 - 32 U/L [facility] ALT (SGPT) 13 10 - 35 U/L [facility] Alkaline phosphatase 124(H) 35 - 104 U/L [facility] Calcium 9.7 8.6 - 10.0 mg/dL [facility] Sodium 138 135 - 145 mEq/L [facility] Potassium 3.5 3.5 - 5.1 mEq/L [facility] Chloride 96(L) 98 - 107 mEq/L [facility] CO2 26.1 22.0 - 32.0 mEq/L [facility] Anion Gap 15(H) 3 - 12 mEq/L [facility] Total Protein 6.7 6.0 - 8.1 g/dL [facility] Albumin 4.4 3.5 - 5.2 g/dL [facility] Globulin 2.3 g/dL [facility] Albumin/Globulin 2.0 Ratio [facility] eGFR 91.54 [facility] Blood 05/09/2025 10:2 9 AM CDT 05/09/2025 10:35 AM CDT us Suman Diana MD LAB BLOOD ORDERABLES nal Result [facility] [address] [address], [facility] from Last 3 Months Insurance [facility] H[facility]/PPO Address: [address] [address] [place] [address] [facility] CHOICE PLUS [facility] H[facility]/PPO Address: [address] [address] [place] [address] Care Teams Hydrogen Plant Operator Relationship Specialty Start Date End Date Andrew Ceballos MD [address] [facility] [address] [place] [address] PCP - General Family Medicine 02/10/25
[2025-05-16 09:03] LABS: GGT 75.3 U/L (12-43)
== END 2025-05-16 08:03 | disposition home or self-care (01) ==
LOC: CHSLAB 08:06
PROVIDERS: PCP Family Medicine; Visit Provider Internal Medicine
DX: D72.829 Elevated white blood cell count, unspecified (principal)
CPT/HCPCS: 36415; 82977; 85025

== ENCOUNTER 2025-05-23 07:25 | Outpatient (CLI) | payer OTHER, SELFPAY ==
--- NOTE | ~2025-05-23 | US_ITS ---
US right upper quadrant Indication: ELEVATED SERUM GGT LEVEL Comparison: None Technique: Vázquez-scale and color Doppler images were obtained. Findings: LIVER: Moderate increased echogenicity of the liver. Within the right lobe liver complex lesion measures 5 x 7 mm possible complex cyst. . GALLBLADDER/BILIARY: Unremarkable.No cholelithiais, wall thickening or pericholecystic fluid. No biliary dilatation. CBD 3.3 mm. [place] sign negative. PANCREAS: Unremarkable. Right Kidney: The right kidney was not imaged. Impression: 1. Moderate hepatic steatosis with nonspecific probable complex liver cyst Reviewed, dictated and finalized at location P. RMATION ASSURANCE ENGINEER Impression: 1. Moderate hepatic steatosis with nonspecific probable complex liver cyst
--- OUTSIDE RECORDS SUMMARY | 2025-05-23 07:29 | XMS_ITS | Clinical Summary ---
[facility] Address [address] [place] [address] Care Team Providers Care Analysis Engineer Name Role Phone Andrew Ceballos MD Primary [...] 1 tablet (100 mcg total) by mouth manager merchandise before breakfast 05/09/20 25 Active metFORMIN XR [...] Encounters Date Type Department Care Team Description 05/17/2025 Telephone [facility] [address] [facility] [address] [place] [phone] Suman Diana MD 05/16/2025 Orders Only [facility] [address] [place] [phone] Suman Diana MD 05/11/2025 Results Follow-Up [facility] [address] [place] [phone] Suman Diana MD Comprehensive metabolic panel, CBC with auto differential, Vitamin D 25 hydroxy, Additional followed-up results: 2 05/09/2025 10:00 AM CDT Office Visit [facility] [address] [place] [phone] Suman Diana MD Type 2 diabetes mellitus [...] Orientation Straight 05/09/2025 9: 55 AM CDT Last Filed Vital Signs Vital Sign Reading [...] Procedure Name Priority Date/Time Associated Diagnosis Comments SCAN - LABS 05/16/2025 11:16 AM CDT SCAN - LABS 05/16/2025 8:45 AM CDT TSH Routine 05/09/2025 10:29 AM CDT Hypothyroidism, [...] (HCC) from Last 3 Months Results * SCAN - LABS (05/16/2025 11:16 AM CDT) Suman Diana MD Final R esult * SCAN - LABS (05/16/2025 8:45 AM CDT) Suman Diana MD Final R esult * (ABNORMAL) CBC with auto differential (05/09/2025 [...] LAB BLOOD ORDERABLES Fi nal Result [facility] [address] [facility] [address] [place] [address] * Vitamin D 25 hydroxy (05/09/2025 10:29 AM CDT) Vitamin D 52.66 >29.00 ng/ml [facility] Blood 05/09/2025 10:2 9 AM CDT 05/09/2025 10:35 AM CDT Suman Diana MD LAB BLOOD ORDERABLES Fi nal Result Performing Organization Address City/[facility]/ZIP Co de Phone Number [facility] [address] [place] [address] * TSH (05/09/2025 10:29 AM CDT) TSH 2.61 0.27 - 4.20 uIU/mL [facility] Blood 05/09/2025 10:2 9 AM CDT 05/09/2025 10:35 AM CDT Suman Diana MD LAB BLOOD ORDERABLES Fi nal Result [facility] [address] [facility] [address] * (ABNORMAL) Lipid panel (05/09/2025 10:29 [...] Diana MD LAB BLOOD ORDERABLES nal Result [facility] [address] [place] [phone] * (ABNORMAL) Comprehensive metabolic panel (05/09/2025 10:29 [...] us Suman Diana MD LAB BLOOD ORDERABLES Fi nal Result [facility] [address] [phone] from Last 3 Months Insurance [facility] CHOICE PLUS [place] [id number] Care Teams Analysis Engineer Relationship Specialty Start Date End Date Andrew Ceballos MD [address] [facility] [address] [place] [address] PCP - General Family Medicine 02/10/25
== END 2025-05-23 07:26 | disposition home or self-care (01) ==
LOC: CHSIMG 07:27
PROVIDERS: PCP Family Medicine; Visit Provider Internal Medicine
DX: R74.8 Abnormal levels of other serum enzymes (principal); K76.0 Fatty (change of) liver, not elsewhere classified
CPT/HCPCS: 76705

== ENCOUNTER 2025-07-17 07:25 | Outpatient (CLI) | payer OTHER, SELFPAY ==
--- NOTE | ~2025-07-17 | MM_ITS ---
EXAMINATION: MM screening mio BI w alexa HISTORY: Screening. TECHNIQUE: Craniocaudal and mediolateral oblique 3-D tomosynthesis images were obtained and synthetic 2-D images were generated. CAD analysis was submitted and interpreted. COMPARISON: 2023, 2022, and 2021. BREAST PARENCHYMAL COMPOSITION: Dense: The breasts are heterogeneously dense, which may obscure small masses. FINDINGS: No suspicious masses are seen. There are no suspicious calcifications. No unexplained architectural distortion is seen. There are no skin or nipple abnormalities identified. There is no adenopathy seen on the images submitted. IMPRESSION: No mammographic evidence to suggest malignancy is seen. The patient may return to screening mammography as per ACR guidelines. BI-RADS 1 - Negative. Reviewed, dictated and finalized at location A. T EXPERIENCE MANAGER
== END 2025-07-17 07:26 | disposition home or self-care (01) ==
PROVIDERS: PCP Family Medicine; Visit Provider Obstetrics & Gynecology
DX: Z12.31 Encounter for screening mammogram for malignant neoplasm of breast (principal)
CPT/HCPCS: 77063; 77067